=== PATIENT | female | born 1990 | race African-American/Black ===

== ENCOUNTER 2016-05-31 12:10 | Emergency (ER) | payer MEDICAID ==
[~2016-05-31] VITALS: Ht 172.7 cm; Wt 145.1 kg
[2016-05-31 12:10] VITALS: BP 191/130; PULSE 86; RESP 19; TEMP 98.1; O2SAT 97
[2016-05-31] MEDS ORDERED: HYDR25TA4 PO (12:23)
[2016-05-31] MEDS ORDERED: NOR10 PO (12:23)
[2016-05-31] MEDS ORDERED: HYG25 PO (12:23)
[2016-05-31] MEDS ORDERED: AMLO1TAB15 PO (12:23)
[2016-05-31] MEDS ORDERED: MECLIZINE HCL 25 MG TABLET (ANITVERT) PO ONE (13:15)
[2016-05-31] MEDS ORDERED: METOCLOPRAMIDE HCL 10 MG/2 ML VIAL IVP ONE (13:15)
[2016-05-31 13:23] LABS: BASOPHILS % (AUTO) 0.5 % (0.0-2.0); EOSINOPHILS # (AUTO) 0.1 K/uL (0.0-0.4); HEMATOCRIT 34.2 % (36-48); LYMPHOCYTES # (AUTO) 2.1 K/uL (1.0-5.5); LYMPHOCYTES % (AUTO) 32.4 % (20.5-51.5); MEAN CORPUSCULAR HEMOGLOBIN 31 pg (27-31); MEAN CORPUSCULAR HGB CONC 35 % (32-36); MEAN CORPUSCULAR VOLUME 88 fL (79.0-98.0); MONOCYTES # (AUTO) 0.4 K/uL (0.0-1.0); MONOCYTES % (AUTO) 6.3 % (1.7-9.3); NEUTROPHILS % (AUTO) 58.8 % (40.0-70.0); PLATELET COUNT (AUTO) 300 K/uL (130-430); RED BLOOD CELL COUNT(AUTO) 3.87 MIL/uL (4.2-6.2); RED CELL DISTRIBUTION WIDTH 13.3 % (9.0-15.0); WHITE BLOOD COUNT (AUTO) 6.6 K/uL (4.8-10.8)
[2016-05-31 13:38] LABS: CALCIUM 8.4 mg/dL (8.4-11.0); CREATININE 0.68 mg/dL (0.55-1.30); POTASSIUM 3.5 mmol/L (3.5-5.1)
[2016-05-31 13:43] LABS: ALBUMIN 3.7 g/dL (3.4-4.8); TOTAL BILIRUBIN 0.7 mg/dL (0.0-1.0); TOTAL PROTEIN, SERUM 7.7 g/dL (6.4-8.3)
[2016-05-31 14:03] LABS: INR 0.9 (0.8-1.2); PROTHROMBIN TIME 10.2 SECS (9.5-12.5)
[2016-05-31 16:11] VITALS: BP 132/77; PULSE 83; RESP 17; TEMP 98.3; O2SAT 97
== END 2016-05-31 16:11 | disposition home or self-care (01) ==
LOC: SED 12:10
DX: R42 Dizziness and giddiness (principal); I10 Essential (primary) hypertension; J45.909 Unspecified asthma, uncomplicated; E11.9 Type 2 diabetes mellitus without complications; Z88.0 Allergy status to penicillin; Z88.5 Allergy status to narcotic agent; Z88.1 Allergy status to other antibiotic agents
CPT/HCPCS: 36415; 70450; 71010; 80053; 81025; 82550; 83880; 84484; 84703; 85025; 85610; 85730; 93005; 96374; 99285; J2765; J8597

== ENCOUNTER 2016-07-30 09:42 | Emergency (ER) | payer MEDICAID ==
[~2016-07-30] VITALS: Ht 172.7 cm; Wt 147.4 kg
[~2016-07-30 09:42] MED LIST: AMLO1TAB15 PO; HYDR25TA4 PO; HYG25 PO; NOR10 PO
[2016-07-30 09:47] VITALS: BP_SYST 165
--- NOTE | 2016-07-30 09:55 | NUR ---
Pt report received from ZEHRA Maldonado. Pt states that she was struck in the abdomen by the head of a horse and was knocked off her feet and landed on her back onto the ground. She states that she was in between the horseradish maker and the horse. Pt c/o abdominal pain and back pain.
--- NOTE | 2016-07-30 09:55 | NUR ---
Patient to ER bed 5 to gown for evaluation. Side rails up. Report given to Anthony SHAHID.
--- NOTE | 2016-07-30 10:03 | NUR ---
Dr. Tao at bedside to assess pt.
[2016-07-30] MEDS ORDERED: ONDANSETRON HCL 4 MG/2 ML VIAL IM ONE (10:45)
[2016-07-30] MEDS ORDERED: HYDROmorphone 1 MG INJ. 1 MG/ML AMPUL IM ONE (10:45)
[2016-07-30] MEDS ORDERED: HYDROmorphone 2 MG/ML VIAL IM ONE (11:00)
--- NOTE | 2016-07-30 11:00 | NUR ---
Pt resting quietly, easily awakened. No needs verbalized at this time.
[2016-07-30] MEDS ORDERED: HYDROCHLOROTHIAZIDE 12.5 MG CAPSULE (HCTZ) PO ONE (12:15)
[2016-07-30] MEDS ORDERED: cloNIDine HCL 0.1 MG TABLET PO ONE (12:15)
[2016-07-30 12:47] VITALS: BP_SYST 162
--- NOTE | 2016-07-30 12:49 | NUR ---
Patient given written and verbal discharge instructions and verbalizes understanding. ER MD discussed with patient the results and treatment provided. Patient in stable condition. ID arm band removed. Patient educated on pain management and to follow up with PMD. Pain Scale 0/10 . Opportunity for questions provided and answered.
== END 2016-07-30 12:47 | disposition home or self-care (01) ==
LOC: SED 09:42
DX: S39.012A Strain of muscle, fascia and tendon of lower back, initial encounter (principal); E66.9 Obesity, unspecified; I10 Essential (primary) hypertension; E11.9 Type 2 diabetes mellitus without complications; J45.909 Unspecified asthma, uncomplicated; Z88.5 Allergy status to narcotic agent; Z88.0 Allergy status to penicillin; Z98.890 Other specified postprocedural states; Z88.8 Allergy status to other drugs, medicaments and biological substances; W19.XXXA Unspecified fall, initial encounter; Y93.89 Activity, other specified; Y99.8 Other external cause status; Y92.89 Other specified places as the place of occurrence of the external cause
CPT/HCPCS: 72072; 72110; 81025; 96372; 99284; J1170; J2405

== ENCOUNTER 2016-12-18 23:09 | Emergency (ER) | payer MEDICAID ==
[~2016-12-18] VITALS: Ht 172.7 cm; Wt 147.4 kg
[2016-12-18 23:20] VITALS: BP_SYST 208
[2016-12-19] MEDS ORDERED: ONDANSETRON HCL 4 MG/2 ML VIAL IM ONE (00:15)
[2016-12-19] MEDS ORDERED: HYDROmorphone 1 MG INJ. 1 MG/ML AMPUL IM ONE (00:15)
[2016-12-19] MEDS ORDERED: cloNIDine HCL 0.1 MG TABLET PO ONE (00:45)
[2016-12-19 01:40] VITALS: BP_SYST 145
== END 2016-12-19 01:40 | disposition home or self-care (01) ==
LOC: SED 23:09
DX: S39.012A Strain of muscle, fascia and tendon of lower back, initial encounter (principal); I10 Essential (primary) hypertension; J45.909 Unspecified asthma, uncomplicated; E11.9 Type 2 diabetes mellitus without complications; Z88.0 Allergy status to penicillin; Z88.5 Allergy status to narcotic agent; Z88.1 Allergy status to other antibiotic agents; Y04.2XXA Assault by strike against or bumped into by another person, initial encounter; Y93.89 Activity, other specified; Y92.89 Other specified places as the place of occurrence of the external cause; Y99.8 Other external cause status
CPT/HCPCS: 96372; 99284; J1170; J2405

== ENCOUNTER 2017-01-14 04:19 | Emergency (ER) | payer MEDICAID ==
[~2017-01-14] VITALS: Ht 172.7 cm; Wt 158.8 kg
[2017-01-14 04:31] VITALS: BP_SYST 210
--- NOTE | 2017-01-14 04:31 | NUR ---
Patient to ER bed 7 to gown for evaluation. Side rails up. Report given to ZEHRA Brown.
--- NOTE | 2017-01-14 04:42 | NUR ---
Patient AOx4, ambulatory, presents to ER with complaint of FORD 11/05, weakness, and dizziness since 219901/13/17. Patient states she took Oxycodone for pain but medication was ineffective. No acute distress noted at this time. O2 sat 99% RA.
[2017-01-14] MEDS ORDERED: GABA-531 PO (04:45)
[2017-01-14] MEDS ORDERED: OXYC10TA71 PO (04:45)
--- NOTE | 2017-01-14 04:48 | NUR ---
ER MD Mahoney at bedside examining patient.
[2017-01-14] MEDS ORDERED: OXYC-508 PO (04:52)
[2017-01-14] MEDS ORDERED: DIPHENHYDRAMINE INJ 50 MG/ML VIAL IM ONE (05:00)
[2017-01-14] MEDS ORDERED: PROCHLORPERAZINE EDISYLATE 10 MG/2 ML VIAL IM ONE (05:00)
--- NOTE | 2017-01-14 05:15 | NUR ---
No adverse reactions noted after medication administration. Will continue to monitor.
--- NOTE | 2017-01-14 06:00 | NUR ---
Patient resting comfortably. Patient difficult to arouse. No noted pain or discomfort at this time.
--- NOTE | 2017-01-14 06:02 | NUR ---
Notified Dr Mahoney of patient's elevated BP 227/143.
--- NOTE | 2017-01-14 06:09 | NUR ---
Patient medicated for elevated BP.
--- NOTE | 2017-01-14 06:14 | NUR ---
Patient using phone. No acute distress noted.
[2017-01-14] MEDS ORDERED: cloNIDine HCL 0.1 MG TABLET PO ONE (06:15)
[2017-01-14] MEDS ORDERED: hydrALAZINE HCL 20 MG/ML VIAL IM ONE (06:15)
--- NOTE | 2017-01-14 06:15 | NUR ---
BP 205/123. Dr Mahoney made aware.
--- NOTE | 2017-01-14 06:24 | NUR ---
No adverse reactions noted after medication administration. Will continue to monitor.
[2017-01-14 06:25] VITALS: BP_SYST 205
--- NOTE | 2017-01-14 06:25 | NUR ---
Patient upset d/t discharge and states "I will leave when I feel better".
--- NOTE | 2017-01-14 06:25 | NUR ---
Patient given written and verbal discharge instructions and verbalizes understanding. ER MD discussed with patient the results and treatment provided. Patient in stable condition. ID arm band removed. Rx of Compazine and Benadryl given. Patient educated on pain management and to follow up with PMD. Pain Scale 2/10 tolerable to patient. Opportunity for questions provided and answered.
== END 2017-01-14 06:25 | disposition home or self-care (01) ==
LOC: SED 04:19
DX: G43.909 Migraine, unspecified, not intractable, without status migrainosus (principal); R03.0 Elevated blood-pressure reading, without diagnosis of hypertension; J45.909 Unspecified asthma, uncomplicated; E11.9 Type 2 diabetes mellitus without complications; Z88.0 Allergy status to penicillin; Z88.5 Allergy status to narcotic agent; Z88.8 Allergy status to other drugs, medicaments and biological substances
CPT/HCPCS: 96372; 99284; J0360; J0780; J1200

== ENCOUNTER 2018-03-16 14:19 | Emergency (ER) | payer MEDICAID ==
[~2018-03-16] VITALS: Ht 172.7 cm; Wt 140.6 kg
[~2018-03-16 14:19] MED LIST changes: +GABA-531 PO; +OXYC-508 PO
[2018-03-16 14:24] VITALS: BP_SYST 259
[2018-03-16 15:08] LABS: BILIRUBIN,URINE NEGATIVE (NEGATIVE); BLOOD, URINE 1+ (NEGATIVE); CLARITY/URINE CLEAR (CLEAR); GLUCOSE,URINE 3+ (NEGATIVE); KETONES,URINE NEGATIVE (NEGATIVE); LEUKOCYTE ESTERASE ,URINE NEGATIVE (NEGATIVE); NITRITE, URINE NEGATIVE (NEGATIVE); PROTEIN URINE NEGATIVE (NEGATIVE); UROBILINOGEN,URINE 0.2 (0.2-1.0)
[2018-03-16 15:16] LABS: COLOR,URINE STRAW (YELLOW)
[2018-03-16 15:17] LABS: BACTERIA,URINE FEW /HPF (None Seen); MUCUS,URINE None Seen /LPF (None Seen); RBC,URINE NONE SEEN /HPF (0-3); WBC,URINE 0-3 /HPF (0-3)
[2018-03-16] MEDS ORDERED: NACL 0.9% 1,000 ML IV ONE ×2 (15:30→16:30)
[2018-03-16] MEDS ORDERED: DIPHENHYDRAMINE INJ 50 MG/ML VIAL IVP ONE (16:00)
[2018-03-16] MEDS ORDERED: AZITHROMYCIN 250 MG TABLET PO ONE (16:00)
[2018-03-16] MEDS ORDERED: cefTRIAXone 250 MG VIAL IM ONE (16:00)
[2018-03-16] MEDS ORDERED: FLUCONAZOLE 200 MG TABLET (DIFLUCAN) PO ONE (16:00)
[2018-03-16] MEDS ORDERED: LIDOCAINE HCL/PF 1% 10 ML AMPUL INJ ONE (16:15)
[2018-03-16] MEDS ORDERED: LIDOCAINE 1%, 20 ML MDV 20 ML ONE (16:18)
[2018-03-16 16:19] LABS: BASOPHILS % (AUTO) 0.4 % (0.0-2.0); EOSINOPHILS # (AUTO) 0.2 K/uL (0.0-0.4); EOSINOPHILS % (AUTO) 1.8 % (0.0-4.0); HEMATOCRIT 39.3 % (36-48); HEMOGLOBIN 12.8 g/dL (12.0-16.0); LYMPHOCYTES # (AUTO) 2.1 K/uL (1.0-5.5); LYMPHOCYTES % (AUTO) 20.8 % (20.5-51.5); MEAN CORPUSCULAR HEMOGLOBIN 29 pg (27-31); MEAN CORPUSCULAR HGB CONC 33 % (32-36); MEAN CORPUSCULAR VOLUME 88 fL (79.0-98.0); MONOCYTES # (AUTO) 0.6 K/uL (0.0-1.0); MONOCYTES % (AUTO) 6.3 % (1.7-9.3); NEUTROPHILS % (AUTO) 70.7 % (40.0-70.0); PLATELET COUNT (AUTO) 277 K/uL (130-430); RED BLOOD CELL COUNT(AUTO) 4.48 MIL/uL (4.2-6.2); RED CELL DISTRIBUTION WIDTH 13.6 % (9.0-15.0); WHITE BLOOD COUNT (AUTO) 9.9 K/uL (4.8-10.8)
[2018-03-16 16:24] LABS: CALCIUM 9.3 mg/dL (8.4-11.0); CREATININE 1.03 mg/dL (0.55-1.30); POTASSIUM 3.3 mmol/L (3.5-5.1)
[2018-03-16 16:29] LABS: ALBUMIN 3.5 g/dL (3.4-4.8); TOTAL BILIRUBIN 0.4 mg/dL (0.0-1.0)
[2018-03-16] MEDS ORDERED: INSULIN REGULAR, HUMAN 10 UNITS/0.1 ML INJ IVP ONE (16:30)
[2018-03-16] MEDS ORDERED: LIDOCAINE/PRILOCAINE 5 GM CREAM (EMLA) TP ONE (17:30)
[2018-03-16 18:05] VITALS: BP_SYST 160
[2018-03-19 02:08] LABS: CHLAMYDIA TRACHOMATIS NAA Negative (Negative); NEISSERIA GONORRHOEAE NAA Negative (Negative)
== END 2018-03-16 18:05 | disposition home or self-care (01) ==
LOC: SED 14:19
DX: N76.0 Acute vaginitis (principal); A60.04 Herpesviral vulvovaginitis; E11.9 Type 2 diabetes mellitus without complications; I10 Essential (primary) hypertension; F17.210 Nicotine dependence, cigarettes, uncomplicated; F12.90 Cannabis use, unspecified, uncomplicated; E66.9 Obesity, unspecified; J45.909 Unspecified asthma, uncomplicated; Z68.42 Body mass index [BMI] 45.0-49.9, adult; Z88.0 Allergy status to penicillin; Z88.5 Allergy status to narcotic agent; Z88.6 Allergy status to analgesic agent; Z88.8 Allergy status to other drugs, medicaments and biological substances; Z79.899 Other long term (current) drug therapy
CPT/HCPCS: 36415; 80053; 81000; 82962; 85025; 86592; 87210; 87252; 87491; 87591; 96372; 96374; 96375; 99284; J0696; J1200; J1815; J2001; J7030; Q0144

== ENCOUNTER 2019-04-01 19:00 | Emergency (ER) | payer OTHER ==
[~2019-04-01] VITALS: Ht 172.7 cm; Wt 142.4 kg
[2019-04-01 19:20] VITALS: BP_SYST 201
--- NOTE | 2019-04-01 19:20 | NUR ---
Patient to ER bed 2 to gown for evaluation. Side rails up.
--- NOTE | 2019-04-01 19:31 | NUR ---
Pt A&Ox4. Pt presents to ER with c/o Right knee pain. Pt states she fell at work today at approximately 3:45pm. Pt did not lose consciousness and did not feel any dizziness upon fall. Upon assessment there is no swelling or discoloration noted on Right knee. patient states pain is 6/10. Patient describes pain as a burning sensation. Patient states left ankle is sore. Patient states pain is 3/10 on left ankle. No swelling or disocoloration noted. Will continue to monitor.
--- NOTE | 2019-04-01 20:00 | NUR ---
ER Dr. Platt at bedside examining patient.
[2019-04-01] MEDS ORDERED: LABETALOL 100 MG/ 20ML VIAL IVP ONE ×3 (20:45→22:45)
[2019-04-01] MEDS: NORMAL SALINE 5 ML DISP.SYRIN IVF SCH ×2 (20:56→21:55)
[2019-04-01] MEDS ORDERED: ACETAMINOPHEN 500 MG TABLET PO ONE (21:30)
[2019-04-01] MEDS ORDERED: LABETALOL HCL 200 MG in NS 250 ML IV ONE (21:30)
--- NOTE | 2019-04-01 22:32 | NUR ---
ER Dr. Platt at bedside explaining results to patient.
--- NOTE | 2019-04-01 22:58 | NUR ---
Medication was given, pt tolerated well. No adverse reaction, will continue to monitor.
--- NOTE | 2019-04-01 23:25 | NUR ---
Blood pressure is 163/92. Patient denies any headache, N/V, blurred vision, chest pain or shortness of breath. Dr. Platt made aware, okay to discharge.
[2019-04-01 23:30] VITALS: BP_SYST 163
--- NOTE | 2019-04-01 23:30 | NUR ---
Patient given written and verbal discharge instructions and verbalizes understanding. ER MD discussed with patient the results and treatment provided. Patient in stable condition. ID arm band removed. IV catheter removed intact and dressing applied, no active bleeding. No Rx given. Patient educated on pain management and to follow up with PMD. Pain Scale 0. Opportunity for questions provided and answered. Medication side effect fact sheet provided.
== END 2019-04-01 23:30 | disposition left against medical advice (07) ==
LOC: SED 19:00
DX: S83.91XA Sprain of unspecified site of right knee, initial encounter (principal); I10 Essential (primary) hypertension; J45.909 Unspecified asthma, uncomplicated; E11.9 Type 2 diabetes mellitus without complications; Z88.0 Allergy status to penicillin; Z88.5 Allergy status to narcotic agent; Z88.8 Allergy status to other drugs, medicaments and biological substances; W01.0XXA Fall on same level from slipping, tripping and stumbling without subsequent striking against object, initial encounter; Y93.89 Activity, other specified; Y92.218 Other school as the place of occurrence of the external cause; Y99.8 Other external cause status
CPT/HCPCS: 29505; 73564; 81025; 93005; 96374; 96376; 99283; J3490

== ENCOUNTER 2019-06-17 04:49 | Emergency (ER) | payer MEDICAID, OTHER ==
[~2019-06-17] VITALS: Ht 172.7 cm; Wt 142.9 kg
[2019-06-17 04:50] VITALS: BP_SYST 144
--- NOTE | 2019-06-17 04:50 | NUR ---
Placed in Hallway 1. Placed on computer installation engineer, blood pressure machine and pulse oximeter. To gown for exam. Side rails up.
[2019-06-17] MEDS ORDERED: NACL 0.9% 1,000 ML IV ONE (05:07)
[2019-06-17] MEDS ORDERED: ONDANSETRON HCL 4 MG/2 ML VIAL IVP ONE (05:15)
[2019-06-17] MEDS ORDERED: INSULIN REGULAR, HUMAN 10 UNITS/0.1 ML INJ IVP ONE (05:15)
[2019-06-17] MEDS ORDERED: ACETAMINOPHEN 500 MG TABLET PO ONE (05:15)
--- NOTE | 2019-06-17 05:25 | NUR ---
28 y/o F presents to ED w/ c/o of HTN and SBP in the 200s earllier this evening. Pt states she has taken Amlodipine @ 0400. Her BP upon arrival was 144/78. Pt c/o of slight headache, and dizziness. Denies any SOB, fever, diarrhea. Will continue to monitor.
--- NOTE | 2019-06-17 05:30 | NUR ---
Dr. Bearden at bedside examining Pt.
--- NOTE | 2019-06-17 06:40 | NUR ---
recheck Accucheck of 312. Reported to
[2019-06-17 06:49] LABS: BILIRUBIN,URINE NEGATIVE (NEGATIVE); BLOOD, URINE 1+ (NEGATIVE); CLARITY/URINE CLEAR (CLEAR); COLOR,URINE YELLOW (YELLOW); GLUCOSE,URINE 2+ (NEGATIVE); KETONES,URINE NEGATIVE (NEGATIVE); LEUKOCYTE ESTERASE ,URINE NEGATIVE (NEGATIVE); NITRITE, URINE NEGATIVE (NEGATIVE); PH,URINE 6.5 (5.0-8.0); PROTEIN URINE NEGATIVE (NEGATIVE); UROBILINOGEN,URINE 0.2 (0.2-1.0)
--- NOTE | 2019-06-17 06:55 | NUR ---
Patient does not wish to proceed with medical care recommended by Dr. Bearden. Patient given information related to possible complications, up to and including , which could occur as a result of leaving hospital at this time. Patient verbalizes understanding of risks involved leaving against medical advice. Patient has signed AMA form.
[2019-06-17 07:39] LABS: BACTERIA,URINE MODERATE /HPF (None Seen); WBC,URINE 0-3 /HPF (0-3)
== END 2019-06-17 06:55 | disposition home or self-care (01) ==
LOC: SED 04:49
DX: I10 Essential (primary) hypertension (principal); R51 Headache; E11.9 Type 2 diabetes mellitus without complications; J45.909 Unspecified asthma, uncomplicated; Z79.899 Other long term (current) drug therapy; Z88.0 Allergy status to penicillin; Z88.5 Allergy status to narcotic agent; Z88.6 Allergy status to analgesic agent
CPT/HCPCS: 81000; 81025; 82962; 87086; 96374; 96375; 99284; J2405; J7030; J1815

== ENCOUNTER 2021-07-01 09:46 | Emergency (ER) | payer SELFPAY ==
[2021-07-01] MEDS ORDERED: SITA50TA3 PO (14:24)
[2021-07-01] MEDS ORDERED: NOR10 PO (14:24)
[2021-07-01] MEDS ORDERED: LISI40TA13 PO (14:24)
[2021-07-02] MEDS ORDERED: INSU100V11 SQ (01:31)
[2021-07-02] MEDS ORDERED: OXYC10TA56 PO (01:31)
[2021-07-02] MEDS ORDERED: GLIP10TA11 PO (01:31)
[2021-07-02] MEDS ORDERED: DULO60CA42 PO (01:31)
== END 2021-07-01 10:00 | disposition left against medical advice (07) ==
LOC: SED 09:46
DX: R11.2 Nausea with vomiting, unspecified (principal); Z53.21 Procedure and treatment not carried out due to patient leaving prior to being seen by health care provider
CPT/HCPCS: 82962

== ENCOUNTER 2021-08-01 19:49 | Emergency (ER) | payer MEDICAID, SELFPAY ==
[~2021-08-01] VITALS: Ht 172.7 cm; Wt 141.5 kg
[~2021-08-01 19:49] MED LIST changes: +DULO60CA42 PO; +GLIP10TA11 PO; +INSU100V11 SQ; +LISI40TA13 PO; +OXYC10TA56 PO; +SITA50TA3 PO
[2021-08-01] MEDS ORDERED: OXYC10TA56 PO ×2 (20:02→20:04)
[2021-08-01 20:03] VITALS: BP_SYST 215
[2021-08-01] MEDS: oxyCODONE HCL 10 MG TAB.ER.12H PO ONE (20:21)
[2021-08-01] MEDS: ONDANSETRON 4 MG ODT TAB PO ONE (20:25)
[2021-08-01] MEDS ORDERED: ONDANSETRON 4 MG ODT TAB ONE (20:28)
[2021-08-01 20:59] VITALS: BP_SYST 172
== END 2021-08-01 21:51 | disposition home or self-care (01) ==
LOC: SED 19:49
DX: G89.29 Other chronic pain (principal); M54.9 Dorsalgia, unspecified; E11.9 Type 2 diabetes mellitus without complications; J45.909 Unspecified asthma, uncomplicated; Z88.0 Allergy status to penicillin; Z88.5 Allergy status to narcotic agent; Z88.8 Allergy status to other drugs, medicaments and biological substances; Z79.899 Other long term (current) drug therapy
CPT/HCPCS: 99283; Q0162

== ENCOUNTER 2021-09-13 18:00 | Emergency (ER) | payer MEDICAID ==
[~2021-09-13] VITALS: Ht 172.7 cm; Wt 135.6 kg
[2021-09-13 18:00] VITALS: BP_SYST 213
[2021-09-13] MEDS ORDERED: NACL 0.9% 1,000 ML IV ONE ×2 (18:15→23:30)
[2021-09-13] MEDS ORDERED: ONDANSETRON HCL 4 MG/2 ML VIAL IVP ONE ×2 (18:30→19:15)
[2021-09-13] MEDS ORDERED: DIPHENHYDRAMINE INJ 50 MG/ML VIAL IVP ONE (18:30)
[2021-09-13] MEDS ORDERED: MORPHINE 4 MG INJ. 4 MG/ML VIAL IVP ONE ×2 (18:30→19:15)
[2021-09-13 18:39] LABS: BASOPHILS # (AUTO) 0.1 K/uL (0.0-0.2); BASOPHILS % (AUTO) 0.9 % (0.0-2.0); HEMATOCRIT 40.9 % (36-48); HEMOGLOBIN 13.3 g/dL (12.0-16.0); LYMPHOCYTES # (AUTO) 2.3 K/uL (1.0-5.5); LYMPHOCYTES % (AUTO) 14.6 % (20.5-51.5); MEAN CORPUSCULAR HEMOGLOBIN 23 pg (27-31); MEAN CORPUSCULAR HGB CONC 33 % (32-36); MEAN CORPUSCULAR VOLUME 72 fL (79.0-98.0); MONOCYTES # (AUTO) 1.1 K/uL (0.0-1.0); NEUTROPHILS % (AUTO) 77.5 % (40.0-70.0); PLATELET COUNT (AUTO) 425 K/uL (130-430); RED CELL DISTRIBUTION WIDTH 17.1 % (9.0-15.0); WHITE BLOOD COUNT (AUTO) 15.5 K/uL (4.8-10.8)
[2021-09-13 19:02] LABS: CALCIUM 11.8 mg/dL (8.4-11.0); CREATININE 1.13 mg/dL (0.55-1.30)
[2021-09-13 19:08] LABS: ALBUMIN 3.6 g/dL (3.4-4.8); TOTAL BILIRUBIN 0.8 mg/dL (0.0-1.0)
[2021-09-13] MEDS ORDERED: ENALAPRILAT DIHYDRATE 1.25 MG/ML VIAL IVP ONE (19:15)
[2021-09-13] MEDS ORDERED: hydrALAZINE HCL 20 MG/ML VIAL IVP ONE (19:15)
[2021-09-13] MEDS ORDERED: cefTRIAXone 1 GM IVPB PREMIX 50 ML IV ONE (20:00)
[2021-09-13] MEDS ORDERED: HYDROmorphone 1 MG/ML INJ. CARTRIDGE IVP ONE ×2 (20:00→21:15)
[2021-09-13] MEDS ORDERED: INSULIN REGULAR, HUMAN 10 UNITS/0.1 ML INJ IVP ONE (21:00)
[2021-09-13 22:37] VITALS: BP_SYST 118
[2021-09-13] MEDS ORDERED: KETOROLAC TROMETHAMINE 30 MG VIAL IVP ONE (23:30)
[2021-09-13] MEDS ORDERED: KCL 20 mEq in 100 mL (PREMIX) 100 ML IV ONE (23:30)
[2021-09-13] MEDS ORDERED: cefTRIAXone 1 GM in D5W 50 ML IV ONE (23:30)
[2021-09-13] MEDS ORDERED: LORazepam 2 MG/ML VIAL IVP ONE (23:30)
== END 2021-09-13 23:30 | disposition left against medical advice (07) ==
LOC: SED 18:00
DX: K80.20 Calculus of gallbladder without cholecystitis without obstruction (principal); E11.65 Type 2 diabetes mellitus with hyperglycemia; E11.69 Type 2 diabetes mellitus with other specified complication; R65.10 Systemic inflammatory response syndrome (SIRS) of non-infectious origin without acute organ dysfunction; J45.909 Unspecified asthma, uncomplicated; Z88.0 Allergy status to penicillin; Z88.5 Allergy status to narcotic agent; Z88.6 Allergy status to analgesic agent; Z88.8 Allergy status to other drugs, medicaments and biological substances
CPT/HCPCS: 36415; 74176; 76376; 76700; 80053; 82962; 83605; 85025; 96361; 96365; 96375; 96376; 99285; J0360; J0696; J1170; J1200; J1815; J2270; J2405; J7030; J1885; J2060

== ENCOUNTER 2021-10-23 20:02 | Inpatient (IN) | payer MEDICAID ==
[~2021-10-23] VITALS: Ht 172.7 cm; Wt 134.7 kg
[2021-10-23 20:18] VITALS: BP_SYST 73
--- NOTE | 2021-10-23 20:25 | NUR ---
PROVIDER OF PT CONDITION. REQUESTED A BED. CHARGE NURSE WILL MOVE PT'S TO PUT PT IN BED 3
--- NOTE | 2021-10-23 20:30 | NUR ---
Patient to ER bed 3 to gown for evaluation. Side rails up.
--- NOTE | 2021-10-23 20:40 | NUR ---
ER at bedside examining patient.
[2021-10-23] MEDS ORDERED: NACL 0.9% 1,000 ML IV ONE (21:15)
[2021-10-23] MEDS ORDERED: ONDANSETRON HCL 4 MG/2 ML VIAL IVP ONE (21:15)
[2021-10-23 21:56] LABS: BASOPHILS # (AUTO) 0.1 K/uL (0.0-0.2); BASOPHILS % (AUTO) 0.5 % (0.0-2.0); EOSINOPHILS % (AUTO) 0.4 % (0.0-4.0); HEMATOCRIT 36.7 % (36-48); HEMOGLOBIN 11.8 g/dL (12.0-16.0); LYMPHOCYTES # (AUTO) 1.7 K/uL (1.0-5.5); LYMPHOCYTES % (AUTO) 14.9 % (20.5-51.5); MEAN CORPUSCULAR HEMOGLOBIN 23 pg (27-31); MEAN CORPUSCULAR HGB CONC 32 % (32-36); MEAN CORPUSCULAR VOLUME 70 fL (79.0-98.0); MONOCYTES # (AUTO) 0.6 K/uL (0.0-1.0); MONOCYTES % (AUTO) 5.3 % (1.7-9.3); NEUTROPHILS # (AUTO) 8.8 K/uL (1.8-7.7); NEUTROPHILS % (AUTO) 78.9 % (40.0-70.0); PLATELET COUNT (AUTO) 342 K/uL (130-430); RED BLOOD CELL COUNT(AUTO) 5.23 MIL/uL (4.2-6.2); RED CELL DISTRIBUTION WIDTH 17.8 % (9.0-15.0); WHITE BLOOD COUNT (AUTO) 11.2 K/uL (4.8-10.8)
[2021-10-23 21:59] LABS: CALCIUM 9.7 mg/dL (8.4-11.0); CREATININE 0.93 mg/dL (0.55-1.30)
[2021-10-23 22:02] LABS: POTASSIUM 2.9 mmol/L (3.5-5.1)
[2021-10-23 22:05] LABS: ALBUMIN 3.5 g/dL (3.4-4.8); TOTAL BILIRUBIN 0.7 mg/dL (0.0-1.0)
[2021-10-23] MEDS ORDERED: ENALAPRILAT DIHYDRATE 1.25 MG/ML VIAL IVP ONE (22:15)
[2021-10-23] MEDS ORDERED: DIPHENHYDRAMINE INJ 50 MG/ML VIAL IVP ONE (22:15)
[2021-10-23] MEDS ORDERED: hydrALAZINE HCL 20 MG/ML VIAL IVP ONE (22:15)
[2021-10-23] MEDS ORDERED: HALOPERIDOL LACTATE 5 MG/ML VIAL IVP ONE (22:15)
[2021-10-23] MEDS ORDERED: KCL 20 mEq in 100 mL (PREMIX) 100 ML IV ONE ×2 (22:15→22:47)
[2021-10-23] MEDS ORDERED: ONDANSETRON HCL 4 MG/2 ML VIAL ONE (22:46)
--- NOTE | 2021-10-24 00:06 | NUR ---
Pt C/O abdominal pain with N/V AOX4 VSS Able to make needs known Hypertensive Medicated Pt restless at this time Requesting dilaudid for pain Pt states shes allergic to every pain med but dada HARDEN made aware
[2021-10-24] MEDS ORDERED: fentaNYL CITRATE/PF 100 MCG/2 ML AMP IVP ONE (00:15)
[2021-10-24] MEDS ORDERED: ONDANSETRON HCL 4 MG/2 ML VIAL IVP ONE ×2 (01:45)
[2021-10-24] MEDS ORDERED: ONDANSETRON HCL 4 MG/2 ML VIAL IVP PRN ×2 (03:00→07:45)
--- NOTE | 2021-10-24 03:06 | NUR ---
Admit bed requested Patient will be admitted to care of Admitted to unit Telemetry Diagnosis Symtomatic gallstones Inpatient (Yes or No) Y Observation (Yes or No) N Orientation concerns or request close to nursing station (Yes or No) N Covid Status Negative On vent or bipap No Isolation requirements No Needs a sitter No From Home (Yes or if No enter name of facility) Yes Requires Dialysis (Yes or No) No Med Rec Completed (Yes of No) No
[2021-10-24] MEDS: HYDROmorphone 1 MG/ML INJ. CARTRIDGE IVP PRN ×4 (03:36→21:05)
[2021-10-24] MEDS: D5NS 500 ML IV SCH ×5 (03:37→17:46)
[2021-10-24 04:44] LABS: BILIRUBIN,URINE NEGATIVE (NEGATIVE); CLARITY/URINE CLEAR (CLEAR); COLOR,URINE YELLOW (YELLOW); GLUCOSE,URINE 3+ (NEGATIVE); KETONES,URINE 2+ (NEGATIVE); LEUKOCYTE ESTERASE ,URINE NEGATIVE (NEGATIVE); NITRITE, URINE NEGATIVE (NEGATIVE); PH,URINE 6.5 (5.0-8.0); PROTEIN URINE 2+ (NEGATIVE); UROBILINOGEN,URINE 0.2 (0.2-1.0)
[2021-10-24 04:46] LABS: BLOOD, URINE TRACE (NEGATIVE)
[2021-10-24 04:58] LABS: BACTERIA,URINE RARE /HPF (None Seen); RBC,URINE 0-3 /HPF (0-3); WBC,URINE 0-3 /HPF (0-3)
--- NOTE | 2021-10-24 05:18 | NUR ---
Admitted to Tele unit. Will go to room 130A Belongings list completed. Complete and up to date summary report printed. SBAR report to be given at bedside with opportunity for questions.
[2021-10-24 06:03] VITALS: BP_SYST 139
--- NOTE | 2021-10-24 07:35 | NUR ---
OPEN NOTE Patient at bed resting. NPO due to procedure scheduled later today. All needs met. Patient noted to have pain 7/10 given Dilaudid via IVP. All needs met and safety checks in place. No signs or symptoms of distress noted.
[2021-10-24] MEDS ORDERED: ACETAMINOPHEN 325 MG TABLET PO PRN ×2 (07:45→08:15)
[2021-10-24] MEDS ORDERED: POTASSIUM CHLORIDE 20 MEQ TAB.PRT.SR PO PRN (07:45)
[2021-10-24] MEDS ORDERED: D5NS 1,000 ML IV SCH (07:45)
[2021-10-24] MEDS ORDERED: ZOLPIDEM TARTRATE 5 MG TABLET PO PRN (07:45)
[2021-10-24] MEDS ORDERED: MUPIROCIN 2% TOPICAL OINTMENT 22 GM NS PRN (07:45)
[2021-10-24] MEDS ORDERED: DOCUSATE SODIUM 100 MG CAPSULE PO PRN (07:45)
[2021-10-24] MEDS ORDERED: DEXTROSE 50% JECT 50 ML DISP.SYRIN IVP PRN (07:45)
[2021-10-24] MEDS ORDERED: MAGNESIUM SULFATE 50 ML IV PRN (07:45)
[2021-10-24] MEDS ORDERED: HYDROmorphone 1 MG/ML INJ. CARTRIDGE IM PRN (08:00)
[2021-10-24] MEDS ORDERED: NALOXONE HCL 0.4 MG/ML AMP (NARCAN) IVP PRN (08:00)
[2021-10-24 08:10] VITALS: BP_SYST 146
[2021-10-24] MEDS: CHLORTHALIDONE 25 MG TABLET (HYGROTON) PO SCH (09:00)
[2021-10-24] MEDS ORDERED: LIDOCAINE 2%, 20 ML MDV ONE (09:20)
[2021-10-24] MEDS ORDERED: NS 500 ML IV.SOLN IV ONE (09:20)
[2021-10-24] MEDS: DULoxetine HCL 30 MG CAPSULE.DR (CYMBALTA) PO SCH (09:20)
[2021-10-24] MEDS ORDERED: PROPOFOL 200MG/ 20ML VIAL (DIPRIVAN) IV ONE (09:20)
[2021-10-24] MEDS: BACLOFEN 10 MG TABLET PO SCH ×3 (09:20→21:02)
[2021-10-24] MEDS: amLODIPine BESYLATE 10 MG TABLET PO SCH (09:21)
[2021-10-24] MEDS: GABAPENTIN 300 MG CAPSULE PO SCH (09:22)
[2021-10-24] MEDS: lisinopriL 20 MG TABLET PO SCH (09:22)
[2021-10-24] MEDS: oxyCODONE HCL 10 MG TAB.ER.12H PO SCH ×2 (09:33→21:00)
--- NOTE | 2021-10-24 09:38 | NUR ---
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
--- NOTE | 2021-10-24 09:47 | NUR ---
CONSULT SURGERY INT ABDOMIAL PAIN S/P CHOLECYSTECTOMY DR HILLARY TRAN [phone] DR THORNTON CALLED AND SPOKE TO ZEHRA ANAYA
[2021-10-24] MEDS ORDERED: PANTOPRAZOLE SODIUM 40 MG/VIAL (PROTONIX) IVP ONE (11:00)
[2021-10-24] MEDS: INSULIN LISPRO SLIDING SCALE 100 UNITS/ML VIAL (humaLOG) SUBCUT PRN ×2 (11:27→17:41)
[2021-10-24 11:45] LABS: HCG,QUAL RESULT NEGATIVE (NEGATIVE)
[2021-10-24 12:00] VITALS: BP_SYST 138
[2021-10-24 12:02] LABS: BARBITURATE, URINE NEGATIVE (NEG <=200); BENZODIAZEPINE, URINE NEGATIVE (NEG <=150); CANNABINOID, URINE POSITIVE (NEG <=50); COCAINE, URINE NEGATIVE (NEG <=150); METHAMPHETAMINES SCREEN,URINE NEGATIVE (NEG <=500); OPIATE, URINE POSITIVE (NEG <=100); PHENCYCLIDINE SCREEN,URINE NEGATIVE (NEG <=25); UR TRICYCLIC ANTIDEPRESSANTS NEGATIVE (NEG <=300); URINE AMPHETAMINE NEGATIVE (NEG <=500); URINE METHADONE NEGATIVE (NEG <=200); URINE OXYCODONE SCREEN POSITIVE (NEG <=100); URINE PROPOXYPHENE SCREEN NEGATIVE (NEG <=300)
--- NOTE | 2021-10-24 12:10 | NUR ---
Patient rounds Patient in bed resting. No signs or symptoms of distress noted. All needs met and safety checks in place. Will continue to monitor.
--- NOTE | 2021-10-24 13:13 | NUR ---
MD ROUNDS SEEN BY DR. TOM AT BEDSIDE.
[2021-10-24] MEDS: LORazepam 2 MG/ML VIAL IVP PRN (13:21)
--- NOTE | 2021-10-24 14:31 | NUR ---
I left a message w/[facility] manager case management requesting plan to transfer patient or continue to authorize stay at [facility].
[2021-10-24 16:00] VITALS: BP_SYST 140
--- NOTE | 2021-10-24 16:00 | NUR ---
Patient rounds Patient resting in bed after medical procedure. Pain noted and Dilaudid will be given by RN via IVP. No notable signs or symptoms of distress noted. All needs met and safety checks in place. Will continue to check.
--- NOTE | 2021-10-24 18:29 | NUR ---
Left a message to Dr. Aceves.
--- NOTE | 2021-10-24 18:33 | NUR ---
CLOSING NOTE Patient is resting, pain level is controlled. Patient IV infusing well, waiting for MD Aceves to call back regarding HIDA scan results. Will endorse to radio adjuster nurse.
[2021-10-25] VITALS (8 sets, daily range): BP systolic 136–164
[2021-10-25] MEDS: HYDROmorphone 1 MG/ML INJ. CARTRIDGE IVP PRN ×5 (04:20→20:27)
[2021-10-25] MEDS: D5NS 500 ML IV SCH ×2 (04:30→09:00)
[2021-10-25 05:52] LABS: BASOPHILS % (AUTO) 0.5 % (0.0-2.0); EOSINOPHILS # (AUTO) 0.1 K/uL (0.0-0.4); EOSINOPHILS % (AUTO) 1.8 % (0.0-4.0); HEMOGLOBIN 10.8 g/dL (12.0-16.0); LYMPHOCYTES # (AUTO) 2.6 K/uL (1.0-5.5); LYMPHOCYTES % (AUTO) 35.1 % (20.5-51.5); MEAN CORPUSCULAR HEMOGLOBIN 23 pg (27-31); MEAN CORPUSCULAR HGB CONC 33 % (32-36); MEAN CORPUSCULAR VOLUME 71 fL (79.0-98.0); MONOCYTES # (AUTO) 0.7 K/uL (0.0-1.0); NEUTROPHILS % (AUTO) 53.6 % (40.0-70.0); PLATELET COUNT (AUTO) 302 K/uL (130-430); RED BLOOD CELL COUNT(AUTO) 4.68 MIL/uL (4.2-6.2); RED CELL DISTRIBUTION WIDTH 17.6 % (9.0-15.0); WHITE BLOOD COUNT (AUTO) 7.5 K/uL (4.8-10.8)
[2021-10-25 06:24] LABS: CALCIUM 9.1 mg/dL (8.4-11.0); CREATININE 0.87 mg/dL (0.55-1.30)
--- NOTE | 2021-10-25 07:59 | NUR ---
OPEN NOTE Patient awake, ambulatory with complaints of pain, will medicate. No signs of distress noted. Encouraged to call for help as needed. Safety checks in place.
[2021-10-25] MEDS: DULoxetine HCL 30 MG CAPSULE.DR (CYMBALTA) PO SCH (08:11)
[2021-10-25] MEDS: lisinopriL 20 MG TABLET PO SCH (08:11)
[2021-10-25] MEDS: BACLOFEN 10 MG TABLET PO SCH ×3 (08:11→21:40)
[2021-10-25] MEDS: amLODIPine BESYLATE 10 MG TABLET PO SCH (08:11)
[2021-10-25] MEDS: GABAPENTIN 300 MG CAPSULE PO SCH (08:11)
[2021-10-25] MEDS: PANTOPRAZOLE SODIUM 40 MG/VIAL (PROTONIX) IVP SCH (08:12)
[2021-10-25] MEDS: CHLORTHALIDONE 25 MG TABLET (HYGROTON) PO SCH (08:41)
[2021-10-25] MEDS: oxyCODONE HCL 10 MG TAB.ER.12H PO SCH ×2 (09:37→21:41)
[2021-10-25] MEDS: cloNIDine HCL 0.2 MG TABLET PO PRN (09:40)
--- NOTE | 2021-10-25 11:06 | NUR ---
MD LINDSEY BAKER Placed a call to MD Aceves office, spoke with Rae who will page . Awaiting call back.
--- NOTE | 2021-10-25 11:13 | NUR ---
MD Love call Spoke with MD Love and gave results of HIDA scan. wants Admitting Physician to call him back. Will page MD Cheney.
--- NOTE | 2021-10-25 11:20 | NUR ---
MD PORTILLO Spoke with Dr Cheney regarding Dr Love wanting to speak to him in regards to GI consult. MD Cheney stated he will communicate with him.
--- NOTE | 2021-10-25 11:36 | NUR ---
Patient status Patient comfortable in bed, resting. No signs and symptoms of distress noted. All needs met and safety checks in place. Will continue to monitor.
--- NOTE | 2021-10-25 13:18 | NUR ---
MD CALL MD Langston called back and made aware that they can not do MRI MRCP.
[2021-10-25] MEDS ORDERED: POTASSIUM CHLORIDE 20 MEQ/PKT PACKET PO ONE (16:00)
--- NOTE | 2021-10-25 16:00 | NUR ---
Patient status Patient comfortable in bed, resting. No signs and symptoms of distress noted. All needs met and safety checks in place. Will continue to monitor.
--- NOTE | 2021-10-25 16:06 | NUR ---
Patient caregiver call Called Patient's mother Lorena at patients request to inform her that patient will be getting an EGD tomorrow morning. Patient is also requesting for her mother or sister to bring her cell phone typewriter aligner to her bedside today. Caregivers are aware.
--- NOTE | 2021-10-25 16:10 | NUR ---
CONSENT Consent for EGD done at this time. Patient is aware and accepting of procedure that will be done. She is aware that she is to be NPO by midnight.
[2021-10-25] MEDS: INSULIN LISPRO SLIDING SCALE 100 UNITS/ML VIAL (humaLOG) SUBCUT PRN (21:49)
[2021-10-26 00:30] VITALS: BP_SYST 157
[2021-10-26] MEDS: HYDROmorphone 1 MG/ML INJ. CARTRIDGE IVP PRN ×5 (01:22→21:10)
[2021-10-26 07:00] LABS: BASOPHILS % (AUTO) 0.6 % (0.0-2.0); EOSINOPHILS # (AUTO) 0.2 K/uL (0.0-0.4); EOSINOPHILS % (AUTO) 2.6 % (0.0-4.0); HEMATOCRIT 29.9 % (36-48); HEMOGLOBIN 9.8 g/dL (12.0-16.0); LYMPHOCYTES # (AUTO) 2.7 K/uL (1.0-5.5); LYMPHOCYTES % (AUTO) 34.8 % (20.5-51.5); MEAN CORPUSCULAR HEMOGLOBIN 23 pg (27-31); MEAN CORPUSCULAR HGB CONC 33 % (32-36); MEAN CORPUSCULAR VOLUME 70 fL (79.0-98.0); MONOCYTES # (AUTO) 0.6 K/uL (0.0-1.0); MONOCYTES % (AUTO) 7.8 % (1.7-9.3); NEUTROPHILS # (AUTO) 4.1 K/uL (1.8-7.7); PLATELET COUNT (AUTO) 275 K/uL (130-430); RED BLOOD CELL COUNT(AUTO) 4.26 MIL/uL (4.2-6.2); RED CELL DISTRIBUTION WIDTH 17.6 % (9.0-15.0); WHITE BLOOD COUNT (AUTO) 7.6 K/uL (4.8-10.8)
[2021-10-26 07:05] LABS: INR 0.9 (0.8-1.2); PROTHROMBIN TIME 9.1 SECS (9.5-12.5)
[2021-10-26 07:07] LABS: CALCIUM 8.4 mg/dL (8.4-11.0); CREATININE 0.9 mg/dL (0.55-1.30); POTASSIUM 3.7 mmol/L (3.5-5.1)
--- NOTE | 2021-10-26 07:30 | NUR ---
Closing Patient resting in bed, unlabored breathing on room air. Given Dilaudid PRN for abdominal and back pain with relief. IV patent and saline locked. Patient ambulated to bathroom independently with steady gait. Patient kept NPO after midnight in preparation for EGD in the morning, patient aware of NPO status and upcoming procedure. Blood sugar 171 this morning. Glipizide held and insulin not given because patient is still NPO and the time for the procedure is unknown. Call light in reach.
[2021-10-26 08:00] VITALS: BP_SYST 129
[2021-10-26 08:18] LABS: NEUTROPHILS % (AUTO) 54.2 % (40.0-70.0)
[2021-10-26] MEDS: oxyCODONE HCL 10 MG TAB.ER.12H PO SCH ×2 (09:00→21:05)
[2021-10-26] MEDS: PANTOPRAZOLE SODIUM 40 MG/VIAL (PROTONIX) IVP SCH (09:00)
[2021-10-26] MEDS ORDERED: ONDANSETRON HCL 4 MG/2 ML VIAL ONE (09:53)
[2021-10-26] MEDS ORDERED: MIDAZOLAM HCL 5 MG/5 ML VIAL IVP PRN (10:30)
[2021-10-26] MEDS ORDERED: ONDANSETRON HCL 4 MG/2 ML VIAL IVP PRN (10:30)
[2021-10-26] MEDS ORDERED: HYDROmorphone 1 MG/ML INJ. CARTRIDGE IM PRN (10:45)
[2021-10-26] MEDS ORDERED: NALOXONE HCL 0.4 MG/ML AMP (NARCAN) IVP PRN ×2 (10:45→11:00)
[2021-10-26] MEDS: lisinopriL 20 MG TABLET PO SCH (11:13)
[2021-10-26] MEDS: DULoxetine HCL 30 MG CAPSULE.DR (CYMBALTA) PO SCH (11:14)
[2021-10-26] MEDS: GABAPENTIN 300 MG CAPSULE PO SCH (11:14)
[2021-10-26] MEDS: BACLOFEN 10 MG TABLET PO SCH ×3 (11:14→21:05)
[2021-10-26] MEDS: CHLORTHALIDONE 25 MG TABLET (HYGROTON) PO SCH (11:15)
[2021-10-26] MEDS: amLODIPine BESYLATE 10 MG TABLET PO SCH (11:15)
[2021-10-26] MEDS ORDERED: DIATR MEGLU/DIATRIZ SOD 30 ML SOLUTION PO ONE (11:18)
[2021-10-26 12:00] VITALS: BP_SYST 137
[2021-10-26] MEDS ORDERED: iohexoL 240 mgI/mL, 150 ML INFUS..BTL IV ONE (14:31)
[2021-10-26 16:00] VITALS: BP_SYST 133
--- NOTE | 2021-10-26 16:17 | NUR ---
Dietitian Recommendations * [facility], 2 gm Na romina SYED, LANI Please refer to Nutrition Assessment for details. Addendum: 10/26/21 at [address] Amended: Links added.
[2021-10-26] MEDS: INSULIN LISPRO SLIDING SCALE 100 UNITS/ML VIAL (humaLOG) SUBCUT PRN ×2 (18:19→21:22)
[2021-10-26 20:30] VITALS: BP_SYST 184
[2021-10-26] MEDS: cloNIDine HCL 0.2 MG TABLET PO PRN (21:06)
[2021-10-27 01:17] VITALS: BP_SYST 116
[2021-10-27] MEDS: HYDROmorphone 1 MG/ML INJ. CARTRIDGE IVP PRN ×6 (02:16→20:34)
--- NOTE | 2021-10-27 02:25 | NUR ---
Pain medication Dilaudid given for 7/10 abdominal/back pain. On eMAR when scanning, co-signature window did not appear despite multiple attempts. Dose verified with Shankar Whitney RN.
[2021-10-27 05:59] LABS: BASOPHILS % (AUTO) 0.6 % (0.0-2.0); EOSINOPHILS # (AUTO) 0.2 K/uL (0.0-0.4); EOSINOPHILS % (AUTO) 2.3 % (0.0-4.0); HEMATOCRIT 31.2 % (36-48); HEMOGLOBIN 10.2 g/dL (12.0-16.0); LYMPHOCYTES # (AUTO) 2.7 K/uL (1.0-5.5); LYMPHOCYTES % (AUTO) 32.4 % (20.5-51.5); MEAN CORPUSCULAR HEMOGLOBIN 23 pg (27-31); MEAN CORPUSCULAR HGB CONC 33 % (32-36); MEAN CORPUSCULAR VOLUME 70 fL (79.0-98.0); MONOCYTES # (AUTO) 0.6 K/uL (0.0-1.0); MONOCYTES % (AUTO) 7.5 % (1.7-9.3); NEUTROPHILS # (AUTO) 4.8 K/uL (1.8-7.7); NEUTROPHILS % (AUTO) 57.2 % (40.0-70.0); PLATELET COUNT (AUTO) 260 K/uL (130-430); RED BLOOD CELL COUNT(AUTO) 4.46 MIL/uL (4.2-6.2); RED CELL DISTRIBUTION WIDTH 17.4 % (9.0-15.0); WHITE BLOOD COUNT (AUTO) 8.4 K/uL (4.8-10.8)
[2021-10-27 06:28] LABS: CALCIUM 8.8 mg/dL (8.4-11.0); CREATININE 0.88 mg/dL (0.55-1.30); POTASSIUM 3.7 mmol/L (3.5-5.1)
[2021-10-27] MEDS: INSULIN LISPRO SLIDING SCALE 100 UNITS/ML VIAL (humaLOG) SUBCUT PRN ×4 (06:53→20:51)
--- NOTE | 2021-10-27 07:30 | NUR ---
Closing Patient resting in bed, unlabored breathing on room air. Given Dialudid PRN for complaint of abdominal/back pain with some relief and clonidine once for elevated BP. Call light in reach.
[2021-10-27 07:58] VITALS: BP_SYST 149
[2021-10-27] MEDS: PANTOPRAZOLE SODIUM 40 MG/VIAL (PROTONIX) IVP SCH ×2 (08:41→20:33)
[2021-10-27] MEDS: GABAPENTIN 300 MG CAPSULE PO SCH (08:43)
[2021-10-27] MEDS: lisinopriL 20 MG TABLET PO SCH (08:45)
[2021-10-27] MEDS: amLODIPine BESYLATE 10 MG TABLET PO SCH (08:45)
[2021-10-27] MEDS: BACLOFEN 10 MG TABLET PO SCH ×3 (08:46→20:32)
[2021-10-27] MEDS: oxyCODONE HCL 10 MG TAB.ER.12H PO SCH ×2 (08:46→20:32)
[2021-10-27] MEDS: DULoxetine HCL 30 MG CAPSULE.DR (CYMBALTA) PO SCH (08:58)
[2021-10-27] MEDS: CHLORTHALIDONE 25 MG TABLET (HYGROTON) PO SCH (08:58)
[2021-10-27] MEDS ORDERED: BISMUTH SUBSALICYLATE 262 MG TAB.CHEW PO PRN (09:15)
[2021-10-27] MEDS ORDERED: DOXY100C5 PO (09:34)
[2021-10-27] MEDS ORDERED: METR-154 PO (09:34)
[2021-10-27] MEDS ORDERED: PRO40 PO (09:34)
[2021-10-27] MEDS ORDERED: metroNIDAZOLE 500 MG TABLET PO ONE (09:40)
[2021-10-27] MEDS ORDERED: DOXYCYCLINE HYCLATE 100 MG CAPSULE PO ONE (09:40)
[2021-10-27 12:00] VITALS: BP_SYST 132
[2021-10-27 16:38] VITALS: BP_SYST 135
[2021-10-27 20:05] VITALS: BP_SYST 155
[2021-10-27] MEDS: metroNIDAZOLE 500 MG TABLET PO SCH (20:32)
[2021-10-27] MEDS: DOXYCYCLINE HYCLATE 100 MG CAPSULE PO SCH (20:33)
--- NOTE | 2021-10-27 20:34 | NUR ---
Opening notes/Pain Pt AAOx4, VSS, no s/s distress noted, mom at bedside. Pt c/o 12/06 abd pain. Medicated with Dilaudid 0.5mg slow IVP as needed. Night time meds given. Blood sugar checked 262, 6 units Humalog administered per protocol. Call light within reach. Safety maintained. To monitor.
[2021-10-28 00:10] VITALS: BP_SYST 157
[2021-10-28] MEDS: HYDROmorphone 1 MG/ML INJ. CARTRIDGE IVP PRN ×5 (00:27→17:29)
--- NOTE | 2021-10-28 00:27 | NUR ---
Rounds/Pain Pt called for pain medicine. VSS. Medicated with Dilaudid for c/o 8/10 abd pain as needed. HS snack provided per pt request. Call light remains within reach. To monitor.
--- NOTE | 2021-10-28 04:43 | NUR ---
Rounds/Pain Pt crying in pain. Medicated with Dilaudid 0.5mg IVP as needed l. FA 22G clear and patent. Call light wiithin reach. Safety maintained. To monitor.
[2021-10-28] MEDS: cloNIDine HCL 0.2 MG TABLET PO PRN (05:47)
[2021-10-28] MEDS: INSULIN LISPRO SLIDING SCALE 100 UNITS/ML VIAL (humaLOG) SUBCUT PRN ×2 (06:32→11:43)
--- NOTE | 2021-10-28 06:32 | NUR ---
Closing notes Pt asleep, easily awakens no s/s distress noted. BS checked 229, 4 units Humalog given per protocol. Call light within reach. Safety maintained. To endorse to AM nurse.
[2021-10-28 06:39] LABS: BASOPHILS # (AUTO) 0.1 K/uL (0.0-0.2); BASOPHILS % (AUTO) 0.7 % (0.0-2.0); EOSINOPHILS # (AUTO) 0.2 K/uL (0.0-0.4); EOSINOPHILS % (AUTO) 2.1 % (0.0-4.0); HEMATOCRIT 33.1 % (36-48); HEMOGLOBIN 10.6 g/dL (12.0-16.0); LYMPHOCYTES # (AUTO) 2.2 K/uL (1.0-5.5); LYMPHOCYTES % (AUTO) 29.4 % (20.5-51.5); MEAN CORPUSCULAR HEMOGLOBIN 23 pg (27-31); MEAN CORPUSCULAR HGB CONC 32 % (32-36); MEAN CORPUSCULAR VOLUME 71 fL (79.0-98.0); MONOCYTES # (AUTO) 0.6 K/uL (0.0-1.0); MONOCYTES % (AUTO) 7.5 % (1.7-9.3); NEUTROPHILS # (AUTO) 4.5 K/uL (1.8-7.7); NEUTROPHILS % (AUTO) 60.3 % (40.0-70.0); PLATELET COUNT (AUTO) 286 K/uL (130-430); RED BLOOD CELL COUNT(AUTO) 4.64 MIL/uL (4.2-6.2); RED CELL DISTRIBUTION WIDTH 17.7 % (9.0-15.0); WHITE BLOOD COUNT (AUTO) 7.5 K/uL (4.8-10.8)
[2021-10-28 07:07] LABS: CALCIUM 8.9 mg/dL (8.4-11.0); CREATININE 0.93 mg/dL (0.55-1.30); POTASSIUM 3.4 mmol/L (3.5-5.1)
[2021-10-28 08:00] VITALS: BP_SYST 140
--- NOTE | 2021-10-28 08:46 | NUR ---
PT GIVEN PAIN MEDS FOR ABD PAIN AND BACK PAIN.
[2021-10-28] MEDS: BACLOFEN 10 MG TABLET PO SCH ×2 (08:53→17:29)
[2021-10-28] MEDS: PANTOPRAZOLE SODIUM 40 MG/VIAL (PROTONIX) IVP SCH (08:53)
[2021-10-28] MEDS: lisinopriL 20 MG TABLET PO SCH (08:54)
[2021-10-28] MEDS: amLODIPine BESYLATE 10 MG TABLET PO SCH (08:54)
[2021-10-28] MEDS: metroNIDAZOLE 500 MG TABLET PO SCH (08:54)
[2021-10-28] MEDS: CHLORTHALIDONE 25 MG TABLET (HYGROTON) PO SCH (08:55)
[2021-10-28] MEDS: DULoxetine HCL 30 MG CAPSULE.DR (CYMBALTA) PO SCH (08:55)
[2021-10-28] MEDS: oxyCODONE HCL 10 MG TAB.ER.12H PO SCH (08:55)
[2021-10-28] MEDS: DOXYCYCLINE HYCLATE 100 MG CAPSULE PO SCH (08:56)
[2021-10-28] MEDS: GABAPENTIN 300 MG CAPSULE PO SCH (08:56)
[2021-10-28] MEDS: LORazepam 2 MG/ML VIAL IVP PRN (13:06)
--- NOTE | 2021-10-28 13:12 | NUR ---
Dispo code 01
[2021-10-28 17:31] VITALS: BP_SYST 137
[2021-10-28 18:33] VITALS: BP_SYST 137
--- NOTE | 2021-10-28 18:50 | NUR ---
TEXTED DR ROCHE, AND TOLD MD THAT PT HAS NO PAIN MEDS AVAILABLE AT HOME AND THE MOM WILL NOT TAKE THE PT HOME WITHOUT PAIN MEDS. DR ROCHE SAID, HE CANNOT WRITE THE RX BECAUSE NOW. EXPLAINED TO PATIENT THAT DOCTORS DO NOT STAY HERE IN THE HOSPITAL AND WE DONT HAVE AN IN-HOUSE DOCTORS AND WHO WILL RIGHT THE RX, THAT WHEN DOCTOR IS NOT AVAILABLE IN-HOUSE WE JUST CALL THEM FOR WHATEVER THE PT NEEDS. EXPLAINED TO PT THAT IF SHE DECIDES TO STAY, SHE MAY BE RESPONSIBLE PAYMENT FOR THE EXTRA STAY. TOLD PT THAT HER OPTION WAS TO STAY AND SO WE CAN TAKE CARE OF THE PAIN AND WAIT UNTIL THE DOCTOR SEE HER TOMORROW. PT SAID SHE DOES NOT WANT TO PAY. PT SAID THE DR ROCHE SHOULD COME BACK AND WRITE THE RX SO SHE CAN GO HOME. PT 'S MOM IS NOW TALKING TO MOLDING TECHNICIAN CHONA.
--- NOTE | 2021-10-28 19:18 | NUR ---
TRIED TO TELL PT'S MOM THAT IF SHE WANTS TO THE DR, SHE CAN SEE HER TOMORROW. PT'S MOM SAID TO ME "YOUR BOSS IS WORKING ON IT" .
[2021-10-28] MEDS ORDERED: ACET-2634 PO (19:35)
--- NOTE | 2021-10-28 19:48 | NUR ---
SILVERIO VUONG TOLD ME THAT SHE SPOKE WITH DR ROCHE AND SAID "NO" AND SHE TOLD TO PT AND HER MOM. LATER ON PATIENT'S ME TOLD MED THAT PT WILL GO HOME , JUST ENDORSE TO NIGHT NURSE TO GIVE THE PAIN MEDS BEFORE PT IS DC.
--- NOTE | 2021-10-28 19:50 | NUR ---
D/C Patient Patient given medication reconciliation form and D/C instructions. Exit Care provided. Patient verbalized understanding. MD discussed with patient the results and treatment provided. Pt's own cane with her. Educated pt to f/u with PCP 7 days from discharge date and continue her home medications. Pt verbalized understanding. Pt states pain is ok at this time. Patient in stable condition, ID band removed. IV catheter removed, intact and dressing applied, no active bleeding. Patient educated on pain management. All belongings sent with patient.
== END 2021-10-28 19:50 | disposition home or self-care (01) | DRG 241 ==
LOC: SED 20:02 → STU 10-24 02:51 → SMU 10-27 12:29
PROVIDERS: ADMIT General Practice; ATTEND General Practice
PROC: 0DB68ZX Excision of Stomach, Via Natural or Artificial Opening Endoscopic, Diagnostic (ICD-10-PCS; principal; 2021-10-26 14:45)
DX: K29.70 Gastritis, unspecified, without bleeding (principal); B96.81 Helicobacter pylori [H. pylori] as the cause of diseases classified elsewhere; D72.829 Elevated white blood cell count, unspecified; E11.65 Type 2 diabetes mellitus with hyperglycemia; E66.01 Morbid (severe) obesity due to excess calories; E87.6 Hypokalemia; Z20.822 Contact with and (suspected) exposure to COVID-19; I10 Essential (primary) hypertension; F11.20 Opioid dependence, uncomplicated; G89.29 Other chronic pain; Z68.42 Body mass index [BMI] 45.0-49.9, adult; Z88.5 Allergy status to narcotic agent; Z88.0 Allergy status to penicillin; Z79.899 Other long term (current) drug therapy; Z88.8 Allergy status to other drugs, medicaments and biological substances; Z90.49 Acquired absence of other specified parts of digestive tract
CPT/HCPCS: 36415; 76376; 76700-TC; 78226; 78264-TC; 80048; 80053; 80307; 81000; 82962; 83036; 83690; 83735; 84703; 85025; 85610-TC; 87081; 88305; 88312; 88313; 96361; 96374; 96375; 96376; 99285; A9537; A9541; C9113; G0378; J0360; J1170; J1200; J1630; J2001; J2060; J2405; J2704; J3010; J3480; J7040; Q9964; Q9966

== ENCOUNTER 2022-05-14 12:44 | Emergency (ER) | payer MEDICAID ==
[~2022-05-14] VITALS: Ht 172.7 cm; Wt 127.0 kg
[~2022-05-14 12:44] MED LIST changes: +ACET-2634 PO; -AMLO1TAB15 PO; +DOXY100C5 PO; +METR-154 PO; -OXYC-508 PO; -OXYC10TA56 PO; +PRO40 PO
[2022-05-14 13:07] VITALS: BP_SYST 181
== END 2022-05-14 16:00 | disposition left against medical advice (07) ==
LOC: SED 12:44
DX: R07.9 Chest pain, unspecified (principal); Z53.21 Procedure and treatment not carried out due to patient leaving prior to being seen by health care provider
CPT/HCPCS: 93005

== ENCOUNTER 2022-08-10 02:25 | Emergency (ER) | payer MEDICAID ==
[~2022-08-10] VITALS: Ht 172.7 cm; Wt 122.5 kg
[2022-08-10 03:07] VITALS: BP_SYST 155
[2022-08-10] MEDS ORDERED: LIDOCAINE 1% 10 MG/ML, 20 ML MDV INJ ONE (03:45)
[2022-08-10] MEDS ORDERED: LIDOCAINE PF 1% 30ML(POUR BTL) INJ ONE (04:05)
[2022-08-10] MEDS ORDERED: DOXY100C5 PO (05:12)
[2022-08-10 05:15] VITALS: BP_SYST 145
--- NOTE | 2022-08-10 06:06 | NUR ---
PT IS MEDICALLY CLEARED FOR DISCHARGED, ALL D/C AND RX INSTRUCTIONS GIVEN TO PATIENT AND VERBALIZED ALL UNDERSTANDING. DENIES ANY OTHER COMPLAINTS. PT AMBULATED OUT OF ER
== END 2022-08-10 06:06 | disposition home or self-care (01) ==
LOC: SED 02:25
DX: N76.4 Abscess of vulva (principal); J45.909 Unspecified asthma, uncomplicated; E11.9 Type 2 diabetes mellitus without complications; Z88.0 Allergy status to penicillin; Z88.5 Allergy status to narcotic agent; Z91.018 Allergy to other foods; Z88.8 Allergy status to other drugs, medicaments and biological substances; Z79.4 Long term (current) use of insulin; Z79.899 Other long term (current) drug therapy
CPT/HCPCS: 99284; 56405; J2001

== ENCOUNTER 2022-10-12 00:49 | Emergency (ER) | payer MEDICAID ==
[~2022-10-12] VITALS: Ht 162.6 cm; Wt 131.1 kg
[2022-10-12 01:09] VITALS: BP_SYST 158
[2022-10-12] MEDS ORDERED: HYDROcodone/ACETAMIN 10-325 MG TAB PO ONE (01:45)
[2022-10-12 02:01] LABS: BASOPHILS # (AUTO) 0.2 K/uL (0.0-0.2); BASOPHILS % (AUTO) 1.3 % (0.0-2.0); EOSINOPHILS # (AUTO) 0.2 K/uL (0.0-0.4); HEMOGLOBIN 8.6 g/dL (12.0-16.0); LYMPHOCYTES # (AUTO) 2.1 K/uL (1.0-5.5); LYMPHOCYTES % (AUTO) 14.3 % (20.5-51.5); MEAN CORPUSCULAR HEMOGLOBIN 20 pg (27-31); MEAN CORPUSCULAR HGB CONC 31 % (32-36); MEAN CORPUSCULAR VOLUME 66 fL (79.0-98.0); MONOCYTES # (AUTO) 1.1 K/uL (0.0-1.0); NEUTROPHILS # (AUTO) 11.5 K/uL (1.8-7.7); NEUTROPHILS % (AUTO) 76.4 % (40.0-70.0); PLATELET COUNT (AUTO) 392 K/uL (130-430); RED BLOOD CELL COUNT(AUTO) 4.26 MIL/uL (4.2-6.2); RED CELL DISTRIBUTION WIDTH 18.5 % (9.0-15.0)
--- NOTE | 2022-10-12 02:04 | NUR ---
PATIENT AMBULATORY TO ER C/O HEADACHE X 2 DAYS NO ACUTE DITRESS NOTED, WILL CONTINUE TO MONITOR.
--- NOTE | 2022-10-12 02:05 | NUR ---
EDP SEEN PATIENT WITH ORDER KAREN OUT.
[2022-10-12 02:23] LABS: CALCIUM 9.6 mg/dL (8.4-11.0); CREATININE 1.14 mg/dL (0.55-1.30); TOTAL BILIRUBIN 0.4 mg/dL (0.0-1.0)
[2022-10-12] MEDS ORDERED: NACL 0.9% 1,000 ML IV ONE (02:45)
[2022-10-12] MEDS ORDERED: INSULIN LISPRO SLIDING SCALE 100 UNITS/ML, 3 ML VIAL (humaLOG) SUBCUT ONE (02:45)
--- NOTE | 2022-10-12 02:50 | NUR ---
IVF INFUSING TO RAC #20 GAUGE
[2022-10-12] MEDS ORDERED: INSULIN Lispro 100 UNITS/ML, 3 ML VIAL (humaLOG) ONE (03:01)
[2022-10-12] MEDS ORDERED: OXYCODONE/ACETAMINOPHEN *10*mg/325 mg TABLET PO ONE ×2 (03:45→05:15)
[2022-10-12] MEDS ORDERED: ZIT250 PO (05:07)
[2022-10-12] MEDS ORDERED: OXYC-128 PO (05:09)
[2022-10-12] MEDS ORDERED: ASPI-1174 PO (05:11)
[2022-10-12] MEDS ORDERED: AZITHROMYCIN 250 MG TABLET PO ONE (05:15)
--- NOTE | 2022-10-12 05:32 | NUR ---
ALL RESULT BACK EDP REASSESS PATIENT AND D/C HOME WITH ISTRUCTION
--- NOTE | 2022-10-12 05:32 | NUR ---
Patient given written and verbal discharge instructions and verbalizes understanding. ER MD discussed with patient the results and treatment provided. Patient in stable condition. ID arm band removed. IV catheter removed intact and dressing applied, no active bleeding. Rx of ASPIRIN AND AZITHROMYCIN given. Patient educated on pain management and to follow up with PMD. Pain Scale . Opportunity for questions provided and answered. Medication side effect fact sheet provided.
[2022-10-12 05:35] VITALS: BP_SYST 109
== END 2022-10-12 05:33 | disposition home or self-care (01) ==
LOC: SED 00:49
DX: R51.9 Headache, unspecified (principal); H66.91 Otitis media, unspecified, right ear; E11.65 Type 2 diabetes mellitus with hyperglycemia; R73.9 Hyperglycemia, unspecified; J45.909 Unspecified asthma, uncomplicated; F17.200 Nicotine dependence, unspecified, uncomplicated; F12.90 Cannabis use, unspecified, uncomplicated; Z88.0 Allergy status to penicillin; Z88.5 Allergy status to narcotic agent; Z91.018 Allergy to other foods; Z88.8 Allergy status to other drugs, medicaments and biological substances; Z79.4 Long term (current) use of insulin; Z79.899 Other long term (current) drug therapy
CPT/HCPCS: 99284; 96360; 80053; 85025; 87040; 36415; 96372; 83605; J7030; Q0144

== ENCOUNTER 2023-01-10 23:31 | Emergency (ER) | payer MEDICAID ==
[~2023-01-10] VITALS: Ht 172.7 cm; Wt 131.5 kg
[~2023-01-10 23:31] MED LIST changes: +ASPI-1174 PO; +ZIT250 PO
[2023-01-10 23:45] VITALS: BP_SYST 166; PULSE 111; RESP 18; TEMP 97.5; O2SAT 99
[2023-01-11] MEDS ORDERED: LIDOCAINE 1% 10 MG/ML, 20 ML MDV INJ ONE (00:15)
[2023-01-11] MEDS ORDERED: HYDROcodone/ACETAMIN 5-325 MG TAB (NORCO/ VICODIN) PO ONE (00:30)
[2023-01-11] MEDS ORDERED: SULF1TAB48 PO (00:32)
[2023-01-11] MEDS ORDERED: HYDR-3927 PO (00:32)
[2023-01-11] MEDS ORDERED: IBUP-1971 PO (00:32)
[2023-01-11 00:50] VITALS: BP_SYST 184; PULSE 109; RESP 18; TEMP 97.5; O2SAT 99
== END 2023-01-11 00:50 | disposition home or self-care (01) ==
LOC: SED 23:31
DX: N76.4 Abscess of vulva (principal); J45.909 Unspecified asthma, uncomplicated; E11.9 Type 2 diabetes mellitus without complications; Z88.0 Allergy status to penicillin; Z88.5 Allergy status to narcotic agent; Z88.6 Allergy status to analgesic agent; Z88.8 Allergy status to other drugs, medicaments and biological substances; Z91.018 Allergy to other foods; Z79.4 Long term (current) use of insulin; Z79.899 Other long term (current) drug therapy
CPT/HCPCS: 99284; 56405; J2001

== ENCOUNTER 2023-03-02 | Emergency (ER) | payer MEDICAID ==
[~2023-03-02] VITALS: Ht 172.7 cm; Wt 136.1 kg
[~2023-03-02] MED LIST changes: +CLIN-142 PO; +HYDR-3927 PO; +IBUP-1971 PO; +SULF1TAB48 PO; +TRAM50TA2 PO
[2023-03-02 00:19] VITALS: BP_SYST 215; PULSE 96; RESP 16; TEMP 97.9; O2SAT 98
[2023-03-02] MEDS ORDERED: DEXAMETHASONE SOD PHOSPHATE 10 MG/ML VIAL IVP ONE (01:00)
[2023-03-02 01:15] LABS: BASOPHILS # (AUTO) 0.1 K/uL (0.0-0.2); BASOPHILS % (AUTO) 0.6 % (0.0-2.0); EOSINOPHILS # (AUTO) 0.1 K/uL (0.0-0.4); EOSINOPHILS % (AUTO) 1.4 % (0.0-4.0); HEMATOCRIT 28.5 % (36-48); HEMOGLOBIN 8.8 g/dL (12.0-16.0); LYMPHOCYTES # (AUTO) 3.1 K/uL (1.0-5.5); LYMPHOCYTES % (AUTO) 31.7 % (20.5-51.5); MEAN CORPUSCULAR HEMOGLOBIN 20 pg (27-31); MEAN CORPUSCULAR HGB CONC 31 % (32-36); MEAN CORPUSCULAR VOLUME 64 fL (79.0-98.0); MONOCYTES # (AUTO) 0.7 K/uL (0.0-1.0); MONOCYTES % (AUTO) 6.9 % (1.7-9.3); NEUTROPHILS # (AUTO) 5.8 K/uL (1.8-7.7); NEUTROPHILS % (AUTO) 59.4 % (40.0-70.0); PLATELET COUNT (AUTO) 382 K/uL (130-430); RED BLOOD CELL COUNT(AUTO) 4.48 MIL/uL (4.2-6.2); RED CELL DISTRIBUTION WIDTH 20.5 % (9.0-15.0); WHITE BLOOD COUNT (AUTO) 9.7 K/uL (4.8-10.8)
[2023-03-02 01:23] LABS: ALBUMIN 3.4 g/dL (3.4-4.8); CALCIUM 10.3 mg/dL (8.4-11.0); CREATININE 1.1 mg/dL (0.55-1.30); POTASSIUM 3.7 mmol/L (3.5-5.1); TOTAL BILIRUBIN 0.2 mg/dL (0.0-1.0); TOTAL PROTEIN, SERUM 7.1 g/dL (6.4-8.3)
[2023-03-02 01:40] LABS: INR 0.9 (0.8-1.2); PROTHROMBIN TIME 9.8 SECS (9.5-12.5)
[2023-03-02] MEDS ORDERED: HYDROmorphone 1 MG/ML INJ. CARTRIDGE IVP ONE (01:45)
[2023-03-02] MEDS ORDERED: NACL 0.9% 1,000 ML IV ONE (02:30)
[2023-03-02] MEDS: INSULIN REGULAR, HUMAN 10 UNITS/0.1 ML, 3 ML VIAL IVP ONE ×2 (02:39→02:49)
[2023-03-02] MEDS ORDERED: INSULIN REGULAR, HUMAN 10 UNITS/0.1 ML, 3 ML VIAL SUBCUT ONE (03:00)
[2023-03-02] MEDS ORDERED: HYDR-3927 PO (03:45)
[2023-03-02] MEDS ORDERED: MED4 PO (03:45)
[2023-03-02] MEDS ORDERED: amLODIPine BESYLATE 10 MG TABLET PO ONE (04:00)
[2023-03-02] MEDS ORDERED: LISINOPRIL 10 MG TABLET (PRINIVIL) PO ONE (04:00)
[2023-03-02 04:20] VITALS: BP_SYST 189; PULSE 95; RESP 22; TEMP 98.9; O2SAT 96
== END 2023-03-02 04:20 | disposition home or self-care (01) ==
LOC: SED
DX: M54.30 Sciatica, unspecified side (principal); M79.661 Pain in right lower leg; M79.662 Pain in left lower leg; J45.909 Unspecified asthma, uncomplicated; E11.9 Type 2 diabetes mellitus without complications; I10 Essential (primary) hypertension; Z88.0 Allergy status to penicillin; Z88.5 Allergy status to narcotic agent; Z88.6 Allergy status to analgesic agent; Z88.8 Allergy status to other drugs, medicaments and biological substances; Z79.4 Long term (current) use of insulin; Z79.899 Other long term (current) drug therapy
CPT/HCPCS: 99284; 96374; 96361; 96375; 80053; 85025; 85379; 85610; 36415; 96372; J1100; J1815; J1170; J7030

== ENCOUNTER 2023-04-09 18:52 | Emergency (ER) | payer MEDICAID ==
[~2023-04-09] VITALS: Ht 170.2 cm; Wt 136.1 kg
[~2023-04-09 18:52] MED LIST changes: +MED4 PO; +METH-776 PO
[2023-04-09 19:17] VITALS: BP_SYST 150; PULSE 71; RESP 16; TEMP 97.8; O2SAT 99
[2023-04-09 20:25] LABS: INFLUENZA TYPE A Negative (NEGATIVE); INFLUENZA TYPE B NEGATIVE (NEGATIVE)
[2023-04-09 20:43] LABS: COVID19 ANTIGEN SOFIA FIA POSITIVE (NEGATIVE)
[2023-04-09] MEDS ORDERED: NIRM1TAB PO (20:59)
[2023-04-09 21:13] VITALS: BP_SYST 136; PULSE 71; RESP 16; TEMP 97.8; O2SAT 99
== END 2023-04-09 21:08 | disposition home or self-care (01) ==
LOC: SED 18:52
DX: U07.1 COVID-19 (principal); I10 Essential (primary) hypertension; E11.9 Type 2 diabetes mellitus without complications; J45.909 Unspecified asthma, uncomplicated; Z88.0 Allergy status to penicillin; Z88.5 Allergy status to narcotic agent; Z91.018 Allergy to other foods; Z79.899 Other long term (current) drug therapy
CPT/HCPCS: 36415; 71045; 99284

== ENCOUNTER 2023-06-09 01:46 | Inpatient (IN) | payer MEDICAID ==
[~2023-06-09] VITALS: Ht 170.2 cm; Wt 135.6 kg
[~2023-06-09 01:46] MED LIST changes: +NIRM1TAB PO; +OXYC-128 PO; +OXYC10TA56 PO
[2023-06-09 01:51] VITALS: BP_SYST 175; PULSE 133; RESP 24; TEMP 100.2; O2SAT 96
[2023-06-09] MEDS: hydrALAZINE HCL 20 MG/ML VIAL IVP ONE ×2 (02:34→04:06)
[2023-06-09] MEDS: LORazepam 2 MG/ML VIAL IVP ONE (02:34)
[2023-06-09] MEDS ORDERED: ACETAMINOPHEN 500 MG TABLET ONE (02:34)
[2023-06-09] MEDS: ACETAMINOPHEN 500 MG TABLET PO ONE (02:35)
[2023-06-09 02:36] LABS: BASOPHILS # (AUTO) 0.1 K/uL (0.0-0.2); BASOPHILS % (AUTO) 0.5 % (0.0-2.0); EOSINOPHILS # (AUTO) 0.1 K/uL (0.0-0.4); EOSINOPHILS % (AUTO) 0.4 % (0.0-4.0); HEMOGLOBIN 8.3 g/dL (12.0-16.0); LYMPHOCYTES # (AUTO) 2.3 K/uL (1.0-5.5); LYMPHOCYTES % (AUTO) 19.1 % (20.5-51.5); MEAN CORPUSCULAR HEMOGLOBIN 20 pg (27-31); MEAN CORPUSCULAR HGB CONC 31 % (32-36); MEAN CORPUSCULAR VOLUME 64 fL (79.0-98.0); MONOCYTES # (AUTO) 0.8 K/uL (0.0-1.0); MONOCYTES % (AUTO) 6.8 % (1.7-9.3); NEUTROPHILS # (AUTO) 8.9 K/uL (1.8-7.7); NEUTROPHILS % (AUTO) 73.2 % (40.0-70.0); PLATELET COUNT (AUTO) 415 K/uL (130-430); RED BLOOD CELL COUNT(AUTO) 4.21 MIL/uL (4.2-6.2); RED CELL DISTRIBUTION WIDTH 18.4 % (9.0-15.0); WHITE BLOOD COUNT (AUTO) 12.1 K/uL (4.8-10.8)
[2023-06-09 02:44] LABS: ANION GAP 10 (5-15); CARBON DIOXIDE 27 mmol/L (23-29); CHLORIDE 98 mmol/L (98-107); CREATININE 1.15 mg/dL (0.55-1.30); GFR AFRICAN AMERICAN 71 mL/min (>90); POTASSIUM 3.6 mmol/L (3.5-5.1); SODIUM SERUM 135 mmol/L (136-145); UREA NITROGEN, BLOOD 12 mg/dL (8-21)
[2023-06-09] MEDS: NACL 0.9% 1,000 ML IV ONE (02:52)
[2023-06-09 03:01] LABS: GFR NON AFRICAN-AMERICAN 58 mL/min (>90)
[2023-06-09 03:03] LABS: GLUCOSE 501 mg/dL (74-106)
[2023-06-09] MEDS: HYDROmorphone 1 MG/ML INJ. CARTRIDGE IVP ONE (03:12)
[2023-06-09] MEDS ORDERED: iohexoL 350 mgI/mL, 100 ML INFUS..BTL IV ONE (03:17)
[2023-06-09 03:59] LABS: BARBITURATE, URINE NEGATIVE (NEG <=200); BENZODIAZEPINE, URINE NEGATIVE (NEG <=150); CANNABINOID, URINE POSITIVE (NEG <=50); COCAINE, URINE NEGATIVE (NEG <=150); METHAMPHETAMINES SCREEN,URINE NEGATIVE (NEG <=500); OPIATE, URINE NEGATIVE (NEG <=100); PHENCYCLIDINE SCREEN,URINE NEGATIVE (NEG <=25); UR TRICYCLIC ANTIDEPRESSANTS NEGATIVE (NEG <=300); URINE AMPHETAMINE NEGATIVE (NEG <=500); URINE METHADONE NEGATIVE (NEG <=200); URINE OXYCODONE SCREEN NEGATIVE (NEG <=100)
[2023-06-09] MEDS: LABETALOL HCL 20 MG/4 ML CARTRIDGE IVP ONE (04:27)
[2023-06-09] MEDS: *HEPARIN PER PHARMACY XX ONE ×2 (05:00→05:30)
[2023-06-09] MEDS ORDERED: cloNIDine HCL 0.2 MG TABLET PO PRN (05:15)
[2023-06-09] MEDS ORDERED: HEPARIN 25,000 UNITS/D5W 250ML 250 ML IV ONE (05:30)
[2023-06-09 05:31] LABS: INR 0.9 (0.8-1.2); PROTHROMBIN TIME 9.3 SECS (9.5-12.5)
[2023-06-09] MEDS: HEPARIN SODIUM,PORCINE 5,000 UNITS/ML VIAL IVP ONE (05:45)
[2023-06-09] MEDS: HEPARIN 25,000 UNITS in 250 ML PREMIX IV PRN (06:04)
[2023-06-09] MEDS: HEPARIN SODIUM,PORCINE 5,000 UNITS/ML VIAL IVP SCH (06:05)
[2023-06-09 06:38] LABS: COVID19 ANTIGEN SOFIA FIA NEGATIVE (NEGATIVE)
[2023-06-09] MEDS ORDERED: LEVE500T21 PO (06:45)
[2023-06-09] MEDS ORDERED: ERGO1250 PO (06:45)
[2023-06-09] MEDS ORDERED: ROSU10TA29 PO (06:45)
[2023-06-09] MEDS ORDERED: INSU100I4 SUBCUT (06:45)
[2023-06-09 06:47] LABS: INFLUENZA TYPE A Negative (NEGATIVE); INFLUENZA TYPE B NEGATIVE (NEGATIVE)
[2023-06-09] MEDS: cloNIDine HCL 0.1 MG TABLET PO PRN ×2 (06:51→10:39)
[2023-06-09] MEDS ORDERED: MORPHINE 4 MG INJ. 4 MG/ML VIAL IVP PRN (07:45)
[2023-06-09] MEDS: HYDROmorphone 1 MG/ML INJ. CARTRIDGE IVP PRN (08:59)
[2023-06-09] MEDS ORDERED: NALOXONE HCL 0.4 MG/ML AMP (NARCAN) IVP PRN ×2 (09:00)
[2023-06-09] MEDS ORDERED: DEXTROSE 50% JECT 50 ML DISP.SYRIN IVP PRN (11:15)
[2023-06-09] MEDS ORDERED: NON-FORMULARY MEDICATION (Rosuvastatin Calcium 1 TAB) PO SCH (11:30)
[2023-06-09] MEDS ORDERED: INSULIN Lispro 100 UNITS/ML, 3 ML VIAL (humaLOG) ONE (11:50)
[2023-06-09] MEDS: INSULIN REGULAR, HUMAN 100 UNITS/ML, 3 ML VIAL (humuLIN R) SUBCUT PRN (11:52)
[2023-06-09] MEDS ORDERED: INSULIN REGULAR, HUMAN 10 UNITS/0.1 ML, 3 ML VIAL ONE ×2 (11:54→20:45)
[2023-06-09] MEDS: lisinopriL 20 MG TABLET PO ONE (11:59)
[2023-06-09] MEDS: PANTOPRAZOLE SODIUM 40 MG TAB PO ONE (12:00)
[2023-06-09] MEDS: levETIRAcetam 500 MG TABLET PO ONE (12:01)
[2023-06-09] MEDS: DULoxetine HCL 30 MG CAPSULE.DR (CYMBALTA) PO ONE (12:07)
[2023-06-09] MEDS: ATORVASTATIN 20 MG TABLET PO ONE (12:07)
[2023-06-09] MEDS: CARVEDILOL 12.5 MG TABLET (COREG) PO ONE (12:07)
[2023-06-09] MEDS: hydrALAZINE HCL 20 MG/ML VIAL IVP PRN (12:08)
[2023-06-09] MEDS ORDERED: hydrALAZINE HCL 20 MG/ML VIAL ONE (12:16)
[2023-06-09] MEDS ORDERED: hydrALAZINE HCL 20 MG/ML VIAL IVP PRN (12:30)
[2023-06-09 13:11] LABS: BASOPHILS # (AUTO) 0.1 K/uL (0.0-0.2); BASOPHILS % (AUTO) 1.3 % (0.0-2.0); EOSINOPHILS # (AUTO) 0.1 K/uL (0.0-0.4); HEMATOCRIT 26.8 % (36-48); HEMOGLOBIN 8.1 g/dL (12.0-16.0); LYMPHOCYTES # (AUTO) 3.2 K/uL (1.0-5.5); LYMPHOCYTES % (AUTO) 31.2 % (20.5-51.5); MEAN CORPUSCULAR HEMOGLOBIN 20 pg (27-31); MEAN CORPUSCULAR HGB CONC 30 % (32-36); MEAN CORPUSCULAR VOLUME 65 fL (79.0-98.0); MONOCYTES # (AUTO) 0.6 K/uL (0.0-1.0); MONOCYTES % (AUTO) 6.1 % (1.7-9.3); NEUTROPHILS # (AUTO) 6.3 K/uL (1.8-7.7); NEUTROPHILS % (AUTO) 60.4 % (40.0-70.0); PLATELET COUNT (AUTO) 368 K/uL (130-430); RED BLOOD CELL COUNT(AUTO) 4.14 MIL/uL (4.2-6.2); RED CELL DISTRIBUTION WIDTH 18.7 % (9.0-15.0); WHITE BLOOD COUNT (AUTO) 10.4 K/uL (4.8-10.8)
[2023-06-09] MEDS: amLODIPine BESYLATE 10 MG TABLET PO ONE (13:18)
[2023-06-09 13:24] LABS: CALCIUM 10.2 mg/dL (8.4-11.0); CREATININE 0.86 mg/dL (0.55-1.30); POTASSIUM 3.4 mmol/L (3.5-5.1); SERUM HCG (QUALITATIVE) NEGATIVE (NEGATIVE)
[2023-06-09 13:27] LABS: INR 0.9 (0.8-1.2); PROTHROMBIN TIME 9.6 SECS (9.5-12.5)
[2023-06-09 13:36] LABS: ALBUMIN 2.5 g/dL (3.4-4.8); THYROID STIMULATING HORMONE 2.63 uIu/mL (0.34-4.82); TOTAL BILIRUBIN 0.3 mg/dL (0.0-1.0); TOTAL PROTEIN, SERUM 7.1 g/dL (6.4-8.3)
[2023-06-09 13:52] LABS: HEMOGLOBIN A1C 12.19 % (<5.7)
[2023-06-09 14:05] LABS: ANISOCYTOSIS 1+; HYPOCHROMASIA 1+; POLYCHROMASIA SLIGHT
[2023-06-09 14:06] LABS: OVALOCYTES FEW; TOTAL IRON BIND. CAPACITY 341 ug/dL (250-450)
[2023-06-09] MEDS: SOD FERRIC GLUC COMPLEX/SUC 125 MG in NS 100 ML IV SCH (16:00)
[2023-06-09] MEDS ORDERED: HYDROmorphone 1 MG/ML INJ. CARTRIDGE ONE (18:56)
[2023-06-09] MEDS: CARVEDILOL 12.5 MG TABLET (COREG) PO SCH (20:22)
[2023-06-09] MEDS: levETIRAcetam 500 MG TABLET PO SCH (20:22)
[2023-06-09] MEDS ORDERED: CARVEDILOL 6.25 MG TABLET (COREG) ONE (20:23)
[2023-06-09] MEDS ORDERED: levETIRAcetam 500 MG TABLET ONE (20:24)
[2023-06-09] MEDS: INSULIN GLARGINE 100 UNITS/ML, 10 ML VIAL SQ SCH (20:55)
[2023-06-09 22:18] VITALS: BP_SYST 132; PULSE 89; RESP 20; TEMP 97.7
[2023-06-09 22:40] VITALS: BP_SYST 132; PULSE 89; RESP 20; TEMP 97.7; O2SAT 98
[2023-06-09 22:46] VITALS: O2SAT 99
[2023-06-09 22:53] VITALS: BP_SYST 132; PULSE 89; RESP 18; TEMP 97.7; O2SAT 99
[2023-06-10] VITALS (8 sets, daily range): BP systolic 123–154; PULSE 86–100; RESP 17–20; TEMP 97.7–99.7; O2SAT 97–100
[2023-06-10 04:45] LABS: BASOPHILS # (AUTO) 0.1 K/uL (0.0-0.2); BASOPHILS % (AUTO) 0.7 % (0.0-2.0); EOSINOPHILS # (AUTO) 0.2 K/uL (0.0-0.4); EOSINOPHILS % (AUTO) 1.8 % (0.0-4.0); HEMATOCRIT 25.7 % (36-48); HEMOGLOBIN 7.7 g/dL (12.0-16.0); LYMPHOCYTES # (AUTO) 2.4 K/uL (1.0-5.5); LYMPHOCYTES % (AUTO) 21.3 % (20.5-51.5); MEAN CORPUSCULAR HEMOGLOBIN 19 pg (27-31); MEAN CORPUSCULAR HGB CONC 30 % (32-36); MEAN CORPUSCULAR VOLUME 64 fL (79.0-98.0); MONOCYTES # (AUTO) 0.7 K/uL (0.0-1.0); MONOCYTES % (AUTO) 5.8 % (1.7-9.3); NEUTROPHILS # (AUTO) 8.1 K/uL (1.8-7.7); NEUTROPHILS % (AUTO) 70.4 % (40.0-70.0); PLATELET COUNT (AUTO) 349 K/uL (130-430); RED BLOOD CELL COUNT(AUTO) 3.99 MIL/uL (4.2-6.2); RED CELL DISTRIBUTION WIDTH 18.8 % (9.0-15.0); WHITE BLOOD COUNT (AUTO) 11.5 K/uL (4.8-10.8)
[2023-06-10 04:51] LABS: ALBUMIN 2.4 g/dL (3.4-4.8); CALCIUM 9.1 mg/dL (8.4-11.0); CREATININE 1.15 mg/dL (0.55-1.30); POTASSIUM 4.1 mmol/L (3.5-5.1); TOTAL BILIRUBIN 0.4 mg/dL (0.0-1.0); TOTAL PROTEIN, SERUM 6.7 g/dL (6.4-8.3)
[2023-06-10] MEDS: HEPARIN SODIUM,PORCINE 2000 UNITS/0.4 ML BOLUS IVP PRN (07:13)
[2023-06-10] MEDS: DULoxetine HCL 30 MG CAPSULE.DR (CYMBALTA) PO SCH (08:28)
[2023-06-10] MEDS: amLODIPine BESYLATE 10 MG TABLET PO SCH (08:28)
[2023-06-10] MEDS: PANTOPRAZOLE SODIUM 40 MG TAB PO SCH (08:30)
[2023-06-10] MEDS: lisinopriL 20 MG TABLET PO SCH (08:30)
[2023-06-10] MEDS: HEPARIN SODIUM,PORCINE 3000 UNITS/0.6 ML BOLUS IVP PRN (13:41)
[2023-06-10] MEDS: RIVAROXABAN 15 MG TABLET PO SCH (20:39)
[2023-06-10] MEDS: MULTIVITAMINS TAB 1 TABLET PO SCH (20:40)
[2023-06-10] MEDS: ATORVASTATIN 20 MG TABLET PO SCH (20:41)
[2023-06-11] VITALS (7 sets, daily range): BP systolic 133–154; PULSE 88–103; RESP 18; TEMP 99.5–101.5; O2SAT 98–100
[2023-06-11 05:56] LABS: BASOPHILS % (AUTO) 0.4 % (0.0-2.0); EOSINOPHILS # (AUTO) 0.1 K/uL (0.0-0.4); EOSINOPHILS % (AUTO) 0.9 % (0.0-4.0); HEMOGLOBIN 7.2 g/dL (12.0-16.0); LYMPHOCYTES # (AUTO) 1.4 K/uL (1.0-5.5); LYMPHOCYTES % (AUTO) 12.4 % (20.5-51.5); MEAN CORPUSCULAR HEMOGLOBIN 19 pg (27-31); MEAN CORPUSCULAR HGB CONC 30 % (32-36); MEAN CORPUSCULAR VOLUME 64 fL (79.0-98.0); MONOCYTES # (AUTO) 0.8 K/uL (0.0-1.0); NEUTROPHILS # (AUTO) 9.1 K/uL (1.8-7.7); NEUTROPHILS % (AUTO) 79.3 % (40.0-70.0); PLATELET COUNT (AUTO) 332 K/uL (130-430); RED BLOOD CELL COUNT(AUTO) 3.73 MIL/uL (4.2-6.2); RED CELL DISTRIBUTION WIDTH 18.3 % (9.0-15.0); RETICULOCYTE COUNT 1.9 % (0.5-1.5); WHITE BLOOD COUNT (AUTO) 11.4 K/uL (4.8-10.8)
[2023-06-11 06:31] LABS: ALBUMIN 2.4 g/dL (3.4-4.8); CREATININE 1.09 mg/dL (0.55-1.30); POTASSIUM 3.5 mmol/L (3.5-5.1); TOTAL BILIRUBIN 0.5 mg/dL (0.0-1.0)
[2023-06-11 06:38] LABS: TOTAL IRON BIND. CAPACITY 332 ug/dL (250-450)
[2023-06-11] MEDS: metFORMIN HCL 500 MG TABLET PO SCH (08:50)
[2023-06-11 12:05] LABS: BILIRUBIN,URINE NEGATIVE (NEGATIVE); COLOR,URINE YELLOW (YELLOW); GLUCOSE,URINE TRACE (NEGATIVE); KETONES,URINE NEGATIVE (NEGATIVE); LEUKOCYTE ESTERASE ,URINE 1+ (NEGATIVE); NITRITE, URINE NEGATIVE (NEGATIVE); PROTEIN URINE 2+ (NEGATIVE); UROBILINOGEN,URINE 0.2 (0.2-1.0)
[2023-06-11 12:10] LABS: HCG,QUAL RESULT NEGATIVE (NEGATIVE)
[2023-06-11 12:55] LABS: BLOOD, URINE TRACE (NEGATIVE); CLARITY/URINE SLIGHTLY HAZY (CLEAR)
[2023-06-11 12:58] LABS: BACTERIA,URINE FEW /HPF (None Seen)
[2023-06-11] MEDS ORDERED: RIVA10TA PO (14:49)
[2023-06-11] MEDS ORDERED: BACL20TA PO (14:49)
[2023-06-11] MEDS ORDERED: METF-379 PO (15:43)
[2023-06-11] MEDS ORDERED: RIVA15TA PO (15:43)
[2023-06-11] MEDS ORDERED: ACETAMINOPHEN 325 MG TABLET PO PRN (15:45)
[2023-06-11] MEDS: HYDROmorphone 1 MG/ML INJ. CARTRIDGE IVP PRN (16:41)
[2023-06-11] MEDS: BISACODYL 5 MG TABLET.DR (DULCOLAX) PO ONE (16:42)
[2023-06-11] MEDS: DOCUSATE SODIUM 250 MG CAPSULE PO ONE (16:42)
[2023-06-11] MEDS: ACETAMINOPHEN 500 MG TABLET PO PRN (16:50)
[2023-06-11] MEDS: RIVAROXABAN 15 MG TABLET PO SCH (17:47)
[2023-06-11] MEDS: DOCUSATE SODIUM 250 MG CAPSULE PO SCH (20:21)
[2023-06-11] MEDS: INSULIN GLARGINE 100 UNITS/ML, 10 ML VIAL SQ SCH (20:57)
[2023-06-12 01:49] VITALS: BP_SYST 131; PULSE 68; RESP 19; TEMP 98.3; O2SAT 96
[2023-06-12 04:00] VITALS: BP_SYST 143; PULSE 106; RESP 20; TEMP 101; O2SAT 97
[2023-06-12 05:06] LABS: BASOPHILS # (AUTO) 0.1 K/uL (0.0-0.2); BASOPHILS % (AUTO) 0.8 % (0.0-2.0); EOSINOPHILS % (AUTO) 0.5 % (0.0-4.0); HEMATOCRIT 23.6 % (36-48); HEMOGLOBIN 7.1 g/dL (12.0-16.0); LYMPHOCYTES # (AUTO) 0.9 K/uL (1.0-5.5); LYMPHOCYTES % (AUTO) 10.7 % (20.5-51.5); MEAN CORPUSCULAR HEMOGLOBIN 19 pg (27-31); MEAN CORPUSCULAR HGB CONC 30 % (32-36); MEAN CORPUSCULAR VOLUME 64 fL (79.0-98.0); MONOCYTES # (AUTO) 0.8 K/uL (0.0-1.0); MONOCYTES % (AUTO) 8.5 % (1.7-9.3); NEUTROPHILS % (AUTO) 79.5 % (40.0-70.0); PLATELET COUNT (AUTO) 312 K/uL (130-430); RED BLOOD CELL COUNT(AUTO) 3.67 MIL/uL (4.2-6.2); RED CELL DISTRIBUTION WIDTH 19.1 % (9.0-15.0); RETICULOCYTE COUNT 2.4 % (0.5-1.5); WHITE BLOOD COUNT (AUTO) 8.8 K/uL (4.8-10.8)
[2023-06-12 08:30] LABS: CALCIUM 9.3 mg/dL (8.4-11.0); CREATININE 1.06 mg/dL (0.55-1.30)
[2023-06-12 08:45] VITALS: BP_SYST 170; PULSE 85; RESP 18; TEMP 100.6; O2SAT 98
[2023-06-12 10:06] LABS: TOTAL IRON BIND. CAPACITY 304 ug/dL (250-450)
[2023-06-12] MEDS: BISACODYL 5 MG TABLET.DR (DULCOLAX) PO PRN (10:25)
[2023-06-12 16:00] VITALS: BP_SYST 123; PULSE 84; RESP 18; TEMP 98.3
[2023-06-12] MEDS: metFORMIN HCL 500 MG TABLET PO SCH (18:17)
[2023-06-12] MEDS: HYDROmorphone 1 MG/ML INJ. CARTRIDGE IVP PRN ×2 (18:36→22:29)
[2023-06-12] MEDS: DULoxetine HCL 30 MG CAPSULE.DR (CYMBALTA) PO SCH (21:58)
[2023-06-12] MEDS: INSULIN GLARGINE 100 UNITS/ML, 10 ML VIAL SQ SCH (22:13)
[2023-06-13 01:22] VITALS: BP_SYST 138; PULSE 72; RESP 18; TEMP 97.9; O2SAT 100
[2023-06-13 05:02] LABS: BASOPHILS # (AUTO) 0.1 K/uL (0.0-0.2); BASOPHILS % (AUTO) 0.8 % (0.0-2.0); EOSINOPHILS # (AUTO) 0.1 K/uL (0.0-0.4); EOSINOPHILS % (AUTO) 1.6 % (0.0-4.0); HEMATOCRIT 24.2 % (36-48); HEMOGLOBIN 7.5 g/dL (12.0-16.0); LYMPHOCYTES # (AUTO) 1.6 K/uL (1.0-5.5); LYMPHOCYTES % (AUTO) 19.7 % (20.5-51.5); MEAN CORPUSCULAR HEMOGLOBIN 20 pg (27-31); MEAN CORPUSCULAR HGB CONC 31 % (32-36); MEAN CORPUSCULAR VOLUME 64 fL (79.0-98.0); MONOCYTES # (AUTO) 0.9 K/uL (0.0-1.0); MONOCYTES % (AUTO) 11.2 % (1.7-9.3); NEUTROPHILS # (AUTO) 5.5 K/uL (1.8-7.7); NEUTROPHILS % (AUTO) 66.7 % (40.0-70.0); PLATELET COUNT (AUTO) 301 K/uL (130-430); RED BLOOD CELL COUNT(AUTO) 3.78 MIL/uL (4.2-6.2); RED CELL DISTRIBUTION WIDTH 18.3 % (9.0-15.0); WHITE BLOOD COUNT (AUTO) 8.2 K/uL (4.8-10.8)
[2023-06-13 05:16] LABS: CALCIUM 10.1 mg/dL (8.4-11.0); CREATININE 1.03 mg/dL (0.55-1.30); POTASSIUM 3.5 mmol/L (3.5-5.1)
[2023-06-13 08:00] VITALS: BP_SYST 118; BP_SYST 98; PULSE 74; PULSE 80; RESP 12; RESP 20; TEMP 97.6; TEMP 98.3; O2SAT 97; O2SAT 98; O2SAT 99
[2023-06-13 11:20] VITALS: BP_SYST 133; PULSE 89; RESP 18; TEMP 97.6; O2SAT 97
[2023-06-13] MEDS ORDERED: FERR210T PO (12:36)
[2023-06-13] MEDS ORDERED: HYDR2TAB4 PO ×2 (12:43→14:21)
[2023-06-13 14:30] VITALS: BP_SYST 133; BP_SYST 181; PULSE 86; RESP 20; TEMP 99; O2SAT 100
[2023-06-20 11:42] LABS: HEMOGLOBIN A2 1.8
== END 2023-06-13 15:08 | disposition home health service (06) | DRG 199 ==
LOC: SED 01:46 → STU 05:08
PROVIDERS: ADMIT Internal Medicine; ATTEND Internal Medicine
DX: I16.0 Hypertensive urgency (principal); I26.99 Other pulmonary embolism without acute cor pulmonale; E44.0 Moderate protein-calorie malnutrition; I24.89 Other forms of acute ischemic heart disease; D50.9 Iron deficiency anemia, unspecified; E11.65 Type 2 diabetes mellitus with hyperglycemia; K74.60 Unspecified cirrhosis of liver; E66.01 Morbid (severe) obesity due to excess calories; E78.5 Hyperlipidemia, unspecified; I10 Essential (primary) hypertension; K21.9 Gastro-esophageal reflux disease without esophagitis; G89.4 Chronic pain syndrome; Z20.822 Contact with and (suspected) exposure to COVID-19; Z68.42 Body mass index [BMI] 45.0-49.9, adult; G40.909 Epilepsy, unspecified, not intractable, without status epilepticus; Z82.49 Family history of ischemic heart disease and other diseases of the circulatory system; Z83.3 Family history of diabetes mellitus; Z86.73 Personal history of transient ischemic attack (TIA), and cerebral infarction without residual deficits; Z87.11 Personal history of peptic ulcer disease; Z87.891 Personal history of nicotine dependence; Z90.49 Acquired absence of other specified parts of digestive tract; Z91.148 Patient's other noncompliance with medication regimen for other reason; Z88.0 Allergy status to penicillin; Z88.5 Allergy status to narcotic agent; Z88.8 Allergy status to other drugs, medicaments and biological substances
CPT/HCPCS: 36415; 71045; 71275; 76376; 76856; 80048; 80053; 80061; 80307; 81000; 81001; 81015; 82272; 82948; 83021; 83037; 83540; 83550; 83690; 83735; 83880; 84443; 84484; 84703; 85025; 85044; 85379; 85610; 85660; 85730; 87086; 93005; 93306; 93970; 97116-GP; 97530-GP; 99291; G0378; J0360; J1170; J1644; J1815; J2060; J2916; Q9967

== ENCOUNTER 2023-11-06 21:30 | Emergency (ER) | payer MEDICARE, MEDICAID ==
[~2023-11-06] VITALS: Ht 170.2 cm; Wt 131.5 kg
[~2023-11-06 21:30] MED LIST changes: -ACET-2634 PO; -ASPI-1174 PO; +BACL20TA PO; -CLIN-142 PO; -DOXY100C5 PO; +ERGO1250 PO; +FERR210T PO; -GABA-531 PO; -GLIP10TA11 PO; -HYDR-3927 PO; -HYDR25TA4 PO; +HYDR2TAB4 PO; -HYG25 PO; -IBUP-1971 PO; +INSU100I4 SUBCUT; +LEVE500T21 PO; -MED4 PO; +METF-379 PO; -METH-776 PO; -METR-154 PO; -NIRM1TAB PO; -OXYC-128 PO; -OXYC10TA56 PO; +RIVA15TA PO; +ROSU10TA29 PO; -SULF1TAB48 PO; -TRAM50TA2 PO; -ZIT250 PO
[2023-11-06 21:37] VITALS: BP_SYST 133; PULSE 102; RESP 18; TEMP 97.1; O2SAT 100
[2023-11-07] MEDS: KETOROLAC TROMETHAMINE 30 MG VIAL IM ONE
[2023-11-07 01:21] LABS: BASOPHILS # (AUTO) 0.1 K/uL (0.0-0.2); BASOPHILS % (AUTO) 0.7 % (0.0-2.0); EOSINOPHILS # (AUTO) 0.3 K/uL (0.0-0.4); EOSINOPHILS % (AUTO) 2.7 % (0.0-4.0); HEMOGLOBIN 9.7 g/dL (12.0-16.0); LYMPHOCYTES # (AUTO) 3.4 K/uL (1.0-5.5); LYMPHOCYTES % (AUTO) 28.3 % (20.5-51.5); MEAN CORPUSCULAR HEMOGLOBIN 21 pg (27-31); MEAN CORPUSCULAR HGB CONC 32 % (32-36); MEAN CORPUSCULAR VOLUME 66 fL (79.0-98.0); MONOCYTES # (AUTO) 0.8 K/uL (0.0-1.0); MONOCYTES % (AUTO) 6.7 % (1.7-9.3); NEUTROPHILS # (AUTO) 7.3 K/uL (1.8-7.7); NEUTROPHILS % (AUTO) 61.6 % (40.0-70.0); PLATELET COUNT (AUTO) 375 K/uL (130-430); RED BLOOD CELL COUNT(AUTO) 4.73 MIL/uL (4.2-6.2); RED CELL DISTRIBUTION WIDTH 19.9 % (9.0-15.0); WHITE BLOOD COUNT (AUTO) 11.9 K/uL (4.8-10.8)
[2023-11-07 01:45] LABS: BILIRUBIN,URINE NEGATIVE (NEGATIVE); BLOOD, URINE NEGATIVE (NEGATIVE); COLOR,URINE YELLOW (YELLOW); GLUCOSE,URINE 3+ (NEGATIVE); KETONES,URINE TRACE (NEGATIVE); NITRITE, URINE POSITIVE (NEGATIVE); PH,URINE 5.5 (5.0-8.0); PROTEIN URINE 3+ (NEGATIVE); UROBILINOGEN,URINE 0.2 (0.2-1.0)
[2023-11-07 01:55] LABS: ALBUMIN 3.3 g/dL (3.4-4.8); BILIRUBIN,DIRECT 0.1 mg/dL (0.0-0.3); CREATININE 1.4 mg/dL (0.55-1.30); POTASSIUM 3.5 mmol/L (3.5-5.1); TOTAL BILIRUBIN 0.5 mg/dL (0.0-1.0); TOTAL PROTEIN, SERUM 7.8 g/dL (6.4-8.3)
[2023-11-07] MEDS: ACETAMINOPHEN 500 MG TABLET PO ONE (02:08)
[2023-11-07 02:29] LABS: CLARITY/URINE SLIGHTLY CLOUDY (CLEAR); LEUKOCYTE ESTERASE ,URINE 1+ (NEGATIVE)
[2023-11-07 02:30] LABS: RBC,URINE 0-3 /HPF (0-3)
[2023-11-07 02:31] LABS: BACTERIA,URINE MODERATE /HPF (None Seen)
[2023-11-07] MEDS: HYDROcodone/ACETAMIN 5-325 MG TAB (NORCO/ VICODIN) PO ONE (03:04)
[2023-11-07] MEDS ORDERED: HYDROcodone/ACETAMIN 5-325 MG TAB (NORCO/ VICODIN) ONE (03:04)
[2023-11-07] MEDS ORDERED: NITR-85 PO (03:46)
[2023-11-07] MEDS ORDERED: IBUP-1969 PO (03:46)
[2023-11-07 03:53] VITALS: BP_SYST 139; PULSE 95; RESP 18; TEMP 98.8; O2SAT 98
[2023-11-07] MEDS: NITROFURANTOIN MONOHYD/M-CRYST 100 MG CAPSULE (MacroBID) PO ONE (04:39)
[2023-11-07 05:24] LABS: BARBITURATE, URINE NEGATIVE (NEG <=200); BENZODIAZEPINE, URINE NEGATIVE (NEG <=150); CANNABINOID, URINE POSITIVE (NEG <=50); COCAINE, URINE NEGATIVE (NEG <=150); METHAMPHETAMINES SCREEN,URINE NEGATIVE (NEG <=500); OPIATE, URINE NEGATIVE (NEG <=100); PHENCYCLIDINE SCREEN,URINE NEGATIVE (NEG <=25); UR TRICYCLIC ANTIDEPRESSANTS NEGATIVE (NEG <=300); URINE AMPHETAMINE NEGATIVE (NEG <=500); URINE METHADONE NEGATIVE (NEG <=200); URINE OXYCODONE SCREEN NEGATIVE (NEG <=100)
== END 2023-11-07 03:53 | disposition home or self-care (01) ==
LOC: SED 21:30
DX: N39.0 Urinary tract infection, site not specified (principal); R10.2 Pelvic and perineal pain; J45.909 Unspecified asthma, uncomplicated; E11.9 Type 2 diabetes mellitus without complications; I10 Essential (primary) hypertension; Z88.0 Allergy status to penicillin; Z88.5 Allergy status to narcotic agent; Z91.018 Allergy to other foods; Z79.899 Other long term (current) drug therapy; Z79.2 Long term (current) use of antibiotics
CPT/HCPCS: 99285; 80307; 80076; 80048; 81000; 81001; 84702; 83690; 85025; 87086; 36415; 81025; 74176; 96372; 81015; J1885

== ENCOUNTER 2024-02-12 01:13 | Emergency (ER) | payer MEDICARE, MEDICAID ==
[~2024-02-12] VITALS: Ht 172.7 cm; Wt 135.2 kg
[~2024-02-12 01:13] MED LIST changes: +IBUP-1969 PO; +NITR-85 PO; -ROSU10TA29 PO; +ROSU10TA72 PO
[2024-02-12 01:23] VITALS: BP_SYST 211; PULSE 109; RESP 20; TEMP 97; O2SAT 98
[2024-02-12 02:57] LABS: BASOPHILS # (AUTO) 0.1 K/uL (0.0-0.2); BASOPHILS % (AUTO) 0.8 % (0.0-2.0); EOSINOPHILS # (AUTO) 0.2 K/uL (0.0-0.4); EOSINOPHILS % (AUTO) 2.1 % (0.0-4.0); HEMATOCRIT 30.9 % (36-48); HEMOGLOBIN 9.7 g/dL (12.0-16.0); LYMPHOCYTES # (AUTO) 3.2 K/uL (1.0-5.5); LYMPHOCYTES % (AUTO) 32.6 % (20.5-51.5); MEAN CORPUSCULAR HEMOGLOBIN 20 pg (27-31); MEAN CORPUSCULAR HGB CONC 31 % (32-36); MEAN CORPUSCULAR VOLUME 65 fL (79.0-98.0); MONOCYTES # (AUTO) 0.5 K/uL (0.0-1.0); NEUTROPHILS # (AUTO) 5.8 K/uL (1.8-7.7); NEUTROPHILS % (AUTO) 59.5 % (40.0-70.0); PLATELET COUNT (AUTO) 364 K/uL (130-430); RED BLOOD CELL COUNT(AUTO) 4.75 MIL/uL (4.2-6.2); RED CELL DISTRIBUTION WIDTH 18.3 % (9.0-15.0); WHITE BLOOD COUNT (AUTO) 9.8 K/uL (4.8-10.8)
[2024-02-12 03:20] LABS: BILIRUBIN,DIRECT 0.1 mg/dL (0.0-0.3); CALCIUM 9.3 mg/dL (8.4-11.0); CREATININE 1.12 mg/dL (0.55-1.30); POTASSIUM 3.1 mmol/L (3.5-5.1); TOTAL BILIRUBIN 0.2 mg/dL (0.0-1.0); TOTAL PROTEIN, SERUM 7.1 g/dL (6.4-8.3)
[2024-02-12 03:26] LABS: INR 0.9 (0.8-1.2); PROTHROMBIN TIME 9.3 SECS (9.5-12.5)
[2024-02-12] MEDS ORDERED: iohexoL 350 mgI/mL, 100 ML INFUS..BTL IV ONE (03:41)
[2024-02-12 04:12] LABS: BILIRUBIN,URINE NEGATIVE (NEGATIVE); BLOOD, URINE NEGATIVE (NEGATIVE); COLOR,URINE YELLOW (YELLOW); GLUCOSE,URINE 3+ (NEGATIVE); KETONES,URINE NEGATIVE (NEGATIVE); NITRITE, URINE NEGATIVE (NEGATIVE); PH,URINE 6.5 (5.0-8.0); PROTEIN URINE 3+ (NEGATIVE); UROBILINOGEN,URINE 0.2 (0.2-1.0)
[2024-02-12 04:18] LABS: CLARITY/URINE SLIGHTLY CLOUDY (CLEAR)
[2024-02-12 04:19] LABS: LEUKOCYTE ESTERASE ,URINE 1+ (NEGATIVE)
[2024-02-12] MEDS: LORazepam 2 MG/ML VIAL IVP ONE (04:19)
[2024-02-12 04:20] LABS: RBC,URINE 0-3 /HPF (0-3)
[2024-02-12 04:21] LABS: BACTERIA,URINE MODERATE /HPF (None Seen); WBC,URINE 20-50 /HPF (0-3)
[2024-02-12 06:08] VITALS: BP_SYST 164; PULSE 87; RESP 19; TEMP 98.6; O2SAT 95
[2024-02-12] MEDS: OXYCODONE/ACETAMINOPHEN 5-325 TABLET PO ONE (06:12)
== END 2024-02-12 06:30 | disposition home or self-care (01) ==
LOC: SED 01:13
DX: K92.2 Gastrointestinal hemorrhage, unspecified (principal); K59.00 Constipation, unspecified; J45.909 Unspecified asthma, uncomplicated; E11.9 Type 2 diabetes mellitus without complications; I10 Essential (primary) hypertension; Z86.73 Personal history of transient ischemic attack (TIA), and cerebral infarction without residual deficits; Z86.711 Personal history of pulmonary embolism; Z88.5 Allergy status to narcotic agent; Z91.018 Allergy to other foods; Z88.0 Allergy status to penicillin; Z88.6 Allergy status to analgesic agent; Z79.899 Other long term (current) drug therapy; Z79.2 Long term (current) use of antibiotics
CPT/HCPCS: 99285; 71275; 96374; 80076; 80048; 81001; 83690; 85025; 85610; 85730; 87086; 36415; 74175; 72191; 81025; Q9967; J2060; 81000; 81015